=== PATIENT | male | born 1950 | race Caucasian/White ===

== ENCOUNTER 2017-10-07 18:38 | Emergency (ER) | payer OTHER, MEDICARE ==
[~2017-10-07] VITALS: Ht 175.3 cm; Wt 83.9 kg
[~2017-10-07 18:38] MED LIST: ARMOUR THYROID120 MG PO; CYCLOBENZAPRINE10 MG PO; NAPROSYN500 MG PO
== END 2017-10-07 23:37 | disposition home or self-care (01) ==
LOC: ED 18:38
DX: S06.0X9A Concussion with loss of consciousness of unspecified duration, initial encounter (principal); S90.32XA Contusion of left foot, initial encounter; S60.222A Contusion of left hand, initial encounter; S30.0XXA Contusion of lower back and pelvis, initial encounter; E03.9 Hypothyroidism, unspecified; Z88.8 Allergy status to other drugs, medicaments and biological substances; Z79.899 Other long term (current) drug therapy; V49.50XA Passenger injured in collision with unspecified motor vehicles in traffic accident, initial encounter
CPT/HCPCS: 70450; 72125; 73130; 73630; 81001; 99284

== ENCOUNTER 2019-12-20 17:04 | Inpatient (IN) | payer MEDICARE, OTHER ==
[~2019-12-20] VITALS: Ht 175.3 cm; Wt 74.2 kg
[~2019-12-20 17:04] MED LIST changes: -ARMOUR THYROID120 MG PO; +ARMOUR THYROID60 MG PO
--- NOTE | 2019-12-20 21:15 | NUR ---
PT ARRIVES TO ICU ROOM 128 ADMITTED FOR HYPONATREMIA WITH NA 117. HAD GONE TO CLINIC TODAY FOR C/O ABD PAIN AND WAS SENT TO ED FOR EVAL, REPORTED TO BE HAVING PERIODS OF CONFUSION. PT AWAKE AND ANSWERS QUESTIONS APPROPRIATELY AT THIS TIME, SOMEWHAT WEAK AND TIRED. DENIES PAIN. TRANSFERRED TO BED BY DRAW SHEET. PT DID NOT HAVE IV SITE IT HAD JUST INFILTRATED PRIOR TO ED- NS BOLUS ON HOLD UNTIL NEW IV SITE IS ESTABLISHED, WELL MAGNESIUM RIDER. ASSESSMENT DONE, QUESTIONS ANSWERED. HR IS IN 50-60'S OCC UP TO 80'S, 2ND DEGREE BLOCK TYPE 1 NOTED AT THIS TIME.
--- NOTE | 2019-12-20 21:30 | NUR ---
MD CALLED UNIT, GIVEN UPDATE. WILL NOTIFY MD WHEN LABS RESULT.
--- NOTE | 2019-12-20 22:10 | NUR ---
PT C/O NAUSEA AFTER TAKING KCL PILLS. 4MG IV ZOFRAN GIVEN
--- NOTE | 2019-12-20 22:15 | NUR ---
250ML BOLUS COMPLETED, LAB ON THEIR WAY TO DRAW.
--- NOTE | 2019-12-20 23:06 | NUR ---
DR HALLMAN CALLED REGARDING CRITICAL NA VALUE 119, INCREASED FROM PREVIOUS. ORDER GIVEN FOR 50ML/HR NS IVF AND PLAN TO RECHECK LABS IN AM.
--- NOTE | 2019-12-21 00:39 | NUR ---
IN TO CHECK ON PT, DO ASSESSMENT.IVF CONTINUE INFUSING. PT DENIES NEED TO VOID AT THIS TIME. VSS, DENIES PAIN.
--- NOTE | 2019-12-21 02:10 | NUR ---
PT CALLS TO USE URINAL, VOIDED 600ML DARK URINE. STATES HE IS NAUSEATED AGAIN, EXPLAINED TOO EARLY FOR WAQAR AND HE STATES HE IS ABLE TO TRY TO JUST LIE BACK AND TRY TO SLEEP.
--- NOTE | 2019-12-21 02:20 | NUR ---
NS 100ML/HR FOR THREE HOURS HAS COMPLETED. PT NOW SALINE LOCKED.
--- NOTE | 2019-12-21 04:15 | NUR ---
PT HAS BEEN CALLING FREQUENTLY FOR A VARIETY OF THINGS "THE BACK OF MY LEFT LEG FEELS DRY", "MY EYES FEEL PUFFY" AND "IS IT OKAY IF I TAKE A SWALLOW OF WATER?" ASSESSMENT DONE AND PT ENCOURAGED TO TRY TO SLEEP. STATES HE IS "JUST A LITTTLE" NAUSEAUS AND DECLINES MORE ZOFRAN AT THIS TIME.
--- NOTE | 2019-12-21 04:38 | NUR ---
PT CALLS TO STATE "MY NOSE FEELS A LITTLE DRY AND MY EYES FEEL A LITTLE PRESSURE." TYLENOL GIVEN HE THINKS THIS MAY BE THE BEGINNING OF A HEADACHE.
--- NOTE | 2019-12-21 05:02 | NUR ---
LAB IN TO DRAW
--- NOTE | 2019-12-21 06:30 | NUR ---
PT HAS BEEN AWAKE RESTING IN BED AND WATCHING TV THE LAST TWO HOURS.
--- NOTE | 2019-12-21 07:30 | NUR ---
REPORT RECIEVED.PATIENT IS RESTFUL IN BED.TALKED WITH APTIENT ABOUT POC FOR DAY. INDICATES UNDERSTANDING. DENIES ABD PAIN,C/O MILD BACK APIN.IS AWARE OF PERSON, PLACE, TIME.
--- NOTE | 2019-12-21 08:00 | NUR ---
ASSESSMENT DONE. TALKING ABOUT THE AMOUNT OF WATER HE HAS BEEN DRINKING AND OTHER THINGS REGARDING HS HEALTH.HAS DIFFERENT COMMENTS ABOUT HIS HEALTH.
--- NOTE | 2019-12-21 09:20 | NUR ---
OOB TO BR TO VOID 400 ML OF AYDEN URINE. IS STABLE ON FEET. TO CHAIR FOR BREAKFAST.
[2019-12-21] MEDS ORDERED: LISINOPRIL-HCT1 EAC2 PO (09:28)
--- NOTE | 2019-12-21 09:45 | NUR ---
BACK TO BED W/O INCIDENT. HR TO 120'S WITH MOVEMENT. DENEIS FEELING DIZZY. STATES HIS EYES ARE DRY AND SOMETIMES GIVE HIM TROUBLE.
[2019-12-21] MEDS ORDERED: MEN'S 50 PLUS1 EACH PO (09:47)
[2019-12-21] MEDS ORDERED: MEN'S MULTIVIT1 EACH PO (09:48)
[2019-12-21] MEDS ORDERED: SELENIUM50 MCG PO (09:48)
[2019-12-21] MEDS ORDERED: MAGOX 400400 MG PO (09:48)
--- NOTE | 2019-12-21 09:49 | NUR ---
MED REC COMPLETE
--- NOTE | 2019-12-21 10:00 | NUR ---
DR. HALLMAN HERE TO SEE PATIENT. ORDERS RECIEVED.
--- NOTE | 2019-12-21 10:30 | NUR ---
ECHO BEING DONE AT BEDSIDE.
--- NOTE | 2019-12-21 11:50 | NUR ---
SLEEPING, NO DISTESS NOTED.
--- NOTE | 2019-12-21 12:10 | NUR ---
SLEEPING, NOT AWAKENED FOR ASSESSMENT AT THIS TIME. IVF INFUSING AT 100 ML/HR.
--- NOTE | 2019-12-21 13:00 | NUR ---
AWAKE, ASSESSMENT DONE. LUNCH ORDERED. FELICE CAPUTO.
--- NOTE | 2019-12-21 13:15 | NUR ---
SPONGE BATH GIVEN, TOLERATED WELL. TO CHAIR FOR LUNCH. VERY TALKATIVE.
--- NOTE | 2019-12-21 13:32 | NUR ---
PT ASLEEP, RN ROMEL REQUESTED I COME AGAIN WHEN PT IS AWAKE.
--- NOTE | 2019-12-21 14:20 | NUR ---
TOOK LUNCH WELL. DENIES NAUSEA.
--- NOTE | 2019-12-21 14:40 | NUR ---
LAB HERE TO DRAW NA.
--- NOTE | 2019-12-21 14:56 | NUR ---
Spoke with Jose in [facility]. He is very high energy. States he is x 1 year and lives alone in [place]. States he is very active and [place]. Does not use any DME. Sister, Tonia, arrives. We are discussing if pt will be able to care for self on discharge and he jumps up rapidly and stand by the bed. Pt becomes dizzy and returns to bed. Pt and sister discuss and he decided on discharge he will go to her home for a few days. Pt also states he has a ramp into his home. Will fu with pt tomorrow.
--- NOTE | 2019-12-21 15:00 | NUR ---
STANDING UP IN ROOM. VISITING WITH SISTER. MONITOR CONTINUE TO SHOW, MAT,SR W/ FIRST DEGREE BLOCK, RARE 2 DEGREE TYPE 1, OCC PVC, PJC. DENEIS FEELING DIZZY.
--- NOTE | 2019-12-21 17:23 | NUR ---
PT ARRIVED TO FLOOR VIA BED. ASSESSMENT COMPLETED. LUNGS CLEAR. HEART IRREGULAR. TELE 4 PLACED. ORIETNED TO ROOM. CALL LIGHT IN REACH.
--- NOTE | 2019-12-21 18:35 | EKG ---
[facility] [address] [place] [address] Signed Sinus rhythm with 2nd degree AV block (Mobitz II) with occasional premature ventricular complexes Possible Left atrial enlargement Left ventricular hypertrophy with QRS widening Abnormal ECG When compared with ECG of 20-DEC-2019 18:11, (Unconfirmed) premature ventricular complexes are now present Confirmed by MENDEL HALLMAN DO ([id number]) on 12/21/2019 6:35:32 PM Electronically Signed By: MENDEL HALLMAN DO 12/21/19 1835 PATIENT NAME: CIARA SANTO Electrocardiogram DATE OF : 52 PHYSICIAN: MENDEL HALLMAN DO REPORT #: [id number] REPORT IS CONFIDENTIAL AND NOT TO BE RELEASED WITHOUT AUTHORIZATION
--- NOTE | 2019-12-21 19:12 | NUR ---
RECEIVED REPORT FROM KENDAL WALLER. pt SITTING IN CHAIR EATING A LARGE DINNER. REQUESTED SALSA, KITCHEN STAFF INFORMED, ITEM PROCURED. CALL LIGHT WITHIN REACH. WHITEBOARD UPDATED.
--- NOTE | 2019-12-21 20:05 | NUR ---
CALL LIGHT ON. pt REPORTED BM, BROWN AND LOOSE, MEDIUM SIZE. ASSESSMENT DONE. HEART RATE IRREGULAR AT TIMES, RATE VARIES. pt REPORTS "I'M FEELING A LOT BETTER" PROVIDED JUICE AND EDUCATED ON FLUID RESTRICTION. PROVIDED A ROBE. pt SITTING IN THE CHAIR WATCHING TV. CALL LIGHT WITHIN REACH. NO REQUESTS AT THIS TIME.
--- NOTE | 2019-12-21 21:10 | NUR ---
PT IS WALKING IN [place] AT THIS TIME. HE DENIES NEEDS.
--- NOTE | 2019-12-21 21:30 | NUR ---
PT CALLED TO SAY HE HAD A BM AND USED URINAL. HE DENIES FURTHER NEEDS AT THIS TIME. CALL LIGHT IS CLOSE.
--- NOTE | 2019-12-21 21:48 | NUR ---
PER KENDAL SERNA. pt REQUESTING SOMETHING TO DRINK. EXPLAINED FLUID RESTRICTION TO pt. AGREED ON PLAN FOR THE NIGHT. WATER PROVIDED. VITALS AND I&O RECORDED. NO FURTHER REQUESTS AT THIS TIME. CALL LIGHT WITHIN REACH.
--- NOTE | 2019-12-21 23:17 | NUR ---
pt AMBULATED TO NURSES STATION. STATED "I'M NOT GOING TO GET WELL ON SO LITTLE FLUID, I KNOW MY BODY ISN'T GOING TO START WORKING WITHOUT MORE FLUID." pt AGREEABLE TO SPEAK WITH THE DOCTOR ABOUT IT IN THE MORNING "THAT'S A GOOD IDEA, I JUST WOKE UP AND I HAD TO LET YOU KNOW WHAT I WAS THINKING." pt REQUESTED TYLENOL FOR 3/10 PAIN IN LOWER ABD, "I THINK IT WILL HELP ME SLEEP, OTHERWISE THIS PAIN IS GOING TO KEEP ME AWAKE." pt RESTING IN BED. NO FURTHER REQUESTS AT THIS TIME. CALL LIGHT WITHIN REACH. EDUCATION DONE ON CURRENT ILLNESS AND TREATMENT.
--- NOTE | 2019-12-21 23:30 | NUR ---
CALL LIGHT ANSWERED. pt C/O LIGHT ON VS MACHINE. MACHINE OFF AND TURNED AWAY FROM pt. SLEEP MASK PROVIDED TO pt. NO ADDITIONAL REQUESTS. BED IN LOW POSITION, CALL LIGHT IN REACH.
--- NOTE | 2019-12-21 23:43 | NUR ---
pt AMBULATING IN ERWIN. STEADY ON FEET. "I ALMOST WENT TO SLEEP BUT THE PAIN WOKE ME BACK UP AGAIN."
--- NOTE | 2019-12-22 01:11 | NUR ---
pt UP WALKING IN ERWIN, SBA.
--- NOTE | 2019-12-22 01:15 | NUR ---
pt REPORTED THAT PAIN IS "PRETTY MUCH GONE" NO OTHER REQUESTS AT THIS TIME. CALL LIGHT WITHIN REACH. pt IN ROOM RESTING.
--- NOTE | 2019-12-22 03:02 | NUR ---
ROUNDED ON pt. RESTING WITH EYES CLOSED, RESPIRATIONS REGULAR AND UNLABORED. CALL LIGHT WITHIN REACH.
--- NOTE | 2019-12-22 05:42 | NUR ---
CALL LIGHT ON. pt UP TO VOID. WEIGHT TAKEN, VITALS AND I&O RECORDED. MORNING MEDICATION GIVEN (SEE MAR). ASSESSMENT DONE. NO FURTHER REQUESTS AT THIS TIME. CALL LIGHT WITHIN REACH.
--- NOTE | 2019-12-22 06:10 | NUR ---
HEARD pt FROM [place]. IN TO ASSESS. pt CRYING. STATED "I'VE NEVER HAD THIS KIND OF PAIN BEFORE. IT'S JUST LIKE ON FRIDAY." pt ORIENTED. RE-ASSESSED. INDICATED PAIN IS LOCATED IN LOWER ABD. "IT JUST MOVES, IT'S NOT GAS PAIN BUT IT FEELS LIKE GAS PAIN. I'VE NEVER HAD PAIN THIS BAD." RATED PAIN 8/10. ABD SOFT, NOT TENDER. UNABLE TO DESCRIBE PAIN OR PINPOINT LOCATION. LAB INTO DRAW. pt CALM AT TIMES AND VERY EMOTIONAL AT TIMES. PROVIDED A WARM BLANKET. pt HUMMING WITH EYES CLOSED, STATED IT WAS OKAY FOR THIS RN TO LEAVE. CALL LIGHT WITHIN REACH.
--- NOTE | 2019-12-22 06:21 | NUR ---
pt WALKING IN THE ERWIN WITH VICKY BOLDEN. CALM AT TIMES, EMOTIONAL AT TIMES. THE pt REPORTED HIS ABD PAIN "IT'S BETTER"
--- NOTE | 2019-12-22 06:36 | NUR ---
IN TO REASSESS. pt LAYING IN BED EYES CLOSED, CHANTING. "I'M FEELING A LITTLE BETTER, I FOUND THAT IF I CHANT I CAN RELAX A LITTLE. GOD HAS BEEN SPEAKING TO ME. YOU KNOW ON FRIDAY I WAS OUT IN THE [place]ARDEN TRYING TO GET MY MIND OFF THE PAIN AND WHEN I WAS HERE I FELT SOMETHING ON MY NECK AND IT WAS A TICK. I WAS ABLE TO KILL IT. I REALIZED THAT GOD WAS GIVING ME A SIGN HOW ELSE WOULD I HAVE BEEN ABLE TO FOCUS ON THAT WITH EVERYTHING ELSE. I HEARD FROM GOD THAT IT'S GOING TO BE OKAY AND THAT'S ALL THAT MATTERS." pt DENIED HEADACHE AT THIS TIME. REPORTED THAT ABD PAIN IS BETTER THAN BEFORE. pt LAYING IN BED WITH EYES CLOSED, CHANTING. CALL LIGHT WITHIN REACH. pt VERBALIZED UNDERSTANDING THAT HE NEEDS TO CALL IMMEDIATELY IF ANYTHING CHANGES.
--- NOTE | 2019-12-22 07:34 | NUR ---
pt HAD A FEW HOURS OF REST THIS SHIFT. UP MULTIPLE TIMES TO THE NURSES STATION TO PROVIDE THOUGHTS. SBA. ORIENTED, THOUGHT PATTERN DIFFICULT TO FOLLOW AT TIMES. TELE 4. DAILY WT. IV SL. TOLERATING REGULAR DIET, 1800 FLUID RESTRICTION. STATED "IF YOU AREN'T PUTTING ANYTHING IN MY VEIN THEN I DON'T KNOW THAT THIS IS ENOUGH FLUID TO MAKE ME WELL" BM THIS SHIFT. PRN PAIN MED X1.
--- NOTE | 2019-12-22 07:38 | NUR ---
RECEIVED REPORT FROM ALIDA EDMONDS. PT CAME OUT TO NURSES STATION. BOTH RNS WALKED PT BACK TO ROOM AT THIS TIME. DISCUSSED WITH PT THAT HE NEEDS TO USE CALL LIGHT TODAY INSTEAD OF COMING OUT TO NURSES STATION IF HE NEEDS SOMETHING. PT REQUESTED THAT THIS RN DO HIS BP. BP 141/81 (93)
--- NOTE | 2019-12-22 07:51 | NUR ---
PATIENT IN SHOWER, IV'S WRAPPED. PATIENT WILL CLL WHEN DONE
--- NOTE | 2019-12-22 09:00 | NUR ---
IN PTS ROOM TO GIVE MEDS AND DO ASSESSMENT
--- NOTE | 2019-12-22 09:00 | NUR ---
Spoke with Jose. States he had a rough night. Woke with a panic attack. States he had abdominal pain which is chronic. States he was not happy with his breakfast as butter was placed on his tray, he is vegan. Reminded he nees to notify when ordering his wishes. He states understanding. States he cont. to plan on going home to his sisters on [place] for a few days. 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
--- NOTE | 2019-12-22 10:00 | NUR ---
IN PTS ROOM TO HANG FLUIDS
--- NOTE | 2019-12-22 12:15 | NUR ---
pt put talent development consultant light for assistance to citrus picker his full urinal
--- NOTE | 2019-12-22 12:36 | NUR ---
PT ALERT, LAYING IN BED. PT APPEARS TO ENJOY ENGAGING IN CONVERSATION. PT SAID HE SLEPT ABOUT 4 HRS AND THEN UNPROMPTED BEGAN TO TALK ABOUT HIS SODIUM LEVELS LEVELS.PT STATED HE HAD SEEN A SPECIALIST PREVIOUS AND PLACED HIM ON A SPECIAL 2000 MG SODIUM DIET. CHANGED THOUGHT PROCESS NUMEROUS TIMES. TERRITORY BUSINESS MANAGER IN TO TAKE VS AND WAS CONCERNED ABOUT HIS BP. PT REQUESTED PRAYER, LEFT A G.POST AND LET HIM KNOW I WILL RETURN.
--- NOTE | 2019-12-22 12:45 | NUR ---
in pts room to give meds. pt also requesting alen for his sandwich
--- NOTE | 2019-12-22 14:00 | NUR ---
Notified by liquid compounder, pt will be dcd today and will need a follow up appt with cardiology in [place], on my way to [facility] to speak with Meera Poon let me know she has already spoken with . Pt will need to follow up with Dr. Mancilla from Cardiology in [place]. In and spoke with Jose, he is wanting to go home. Sister Tonia will pick him up and take him home with her for a few days. He will follow up with automotive center manager in the next few day.
--- NOTE | 2019-12-22 14:37 | NUR ---
CALLED PT'S SISTER TO NOTIFY THAT WILL BE DISCHARGING PT HOME TODAY THEN WILL NEED TO FOLLOW UP URGENTLY WITH CARDIOLOGY.
[2019-12-22] MEDS ORDERED: LISINOPRIL10 MG PO (14:42)
--- NOTE | 2019-12-23 17:47 | EKG ---
[facility] [address] [place], [place] [address] Signed Sinus rhythm with 2nd degree AV block (Mobitz I) Possible Left atrial enlargement Left ventricular hypertrophy Abnormal ECG No previous ECGs available Confirmed by MENDEL HALLMAN DO ([id number]) on 12/23/2019 5:47:18 PM Electronically Signed By: MENDEL HALLMAN DO 12/23/19 1747 PATIENT NAME: CIARA SANTO Electrocardiogram DATE OF : 52 PHYSICIAN: MENDEL HALLMAN DO REPORT #: [id number] REPORT IS CONFIDENTIAL AND NOT TO BE RELEASED WITHOUT AUTHORIZATION
== END 2019-12-22 16:35 | disposition home or self-care (01) | DRG 640 ==
LOC: ED 17:04 → CCU 20:44 → MS 12-21 17:15
PROVIDERS: ADMIT Student in an Organized Health Care Education/Training Program
DX: E87.1 Hypo-osmolality and hyponatremia (principal); G93.41 Metabolic encephalopathy; I44.1 Atrioventricular block, second degree; E03.9 Hypothyroidism, unspecified; I10 Essential (primary) hypertension; T50.2X5A Adverse effect of carbonic-anhydrase inhibitors, benzothiadiazides and other diuretics, initial encounter; Z20.828 Contact with and (suspected) exposure to other viral communicable diseases; Z88.8 Allergy status to other drugs, medicaments and biological substances; Z79.899 Other long term (current) drug therapy
CPT/HCPCS: 36415; 80048; 80053; 81001; 82533; 82550; 83690; 83735; 83935; 84100; 84295; 84300; 84443; 84484; 85025; 93005; 93010; 93306; 97161; 97165; 99285-25; C9803; J1650; J2405; J3475; J7030; J7040; U0002

== ENCOUNTER 2020-01-04 11:59 | Emergency (ER) | payer MEDICARE ==
[~2020-01-04] VITALS: Ht 175.3 cm; Wt 74.2 kg
--- OUTSIDE RECORDS SUMMARY | ~2020-01-04 | XMS | Encounter Summary ---
Demographics + + + | Address | [address] | | | [place] [address] | + + + | Home Phone | | + + + | Preferred Language | Unknown | + + + | Marital Status | | + + + | Amish Affiliation | Unknown | + + + | Race | Unknown | + + + | Ethnic Group | Unknown | + + + Author + + + | Author | [facility] | | | and [place] | + + + | Organization | [facility] | | | and [place] | + + + | Address | Unknown | + + + | Phone | Unavailable | + + + Support + + +---------+ + | Name | Relationship | Address | Phone | + + +---------+ + | Tonia Donato | ECON | Unknown | | + + +---------+ + Care Team Providers + +------+ + | Care Track Car Operator Name | Role | Phone | + +------+ + | Neida Noyola | PCP | | + +------+ + Reason for Referral Diagnostic/Screening (Routine) +--------+--------+ + + + + | Status | Reason | Specialty | Diagnoses / | Referred By | Referred To | | | | | Procedures | Contact | Contact | +--------+--------+ + + + + | Closed | | Radiology | Diagnoses | Maldonado Brantley | | | | | Second | MD Bryan | Electrodiagno | | | | | degree AV | [address] | [address] | | | | | block | [address] | [place] | | | | | Procedures | [place], | [place], [place] | | | | | Holter | [place] [address] | [address] | | | | | monitor - 48 | Phone: | Phone: | | | | | hour | [phone] | [phone] | | | | | | Fax: | Fax: | | | | | | [phone] | [phone] | +--------+--------+ + + + + Reason for Visit + + + | Reason | Comments | + + + | New Patient | 2nd degree AV block | + + + Evaluate & Treat (Urgent) + +--------+ + + + + | Status | Reason | Specialty | Diagnoses / | Referred By | Referred To | | | | | Procedures | Contact | Contact | + +--------+ + + + + | Authorized | | Cardiology | Diagnoses | Monica, | [facility] | | | | | Second | [address] | Cardiology | | | | | degree AV | [address] | [address] | | | | | block | [place], | [place], | | | | | Procedures | [place] [address] | [place] | | | | | [facility] | Phone: | [address] | | | | | | [phone] | Phone: | | | | | | Fax: | [phone] | | | | | | [phone] | Fax: | | | | | | | [phone] | + +--------+ + + + + Encounter Details +--------+---------+ + + + | Date | Type | Department | Care Team | Description | +--------+---------+ + + + | 12/26/ | Office | [facility] | Bryan Brantley, | Second degree AV | | 2020 | Visit | CARDIOLOGY [address] | MD [address] | block (Primary Dx) | | | | [place], | [place], | | | | | [place] [address] | [place] [address] | | | | | [phone] | [phone] | | | | | | | | +--------+---------+ + + + Social History + +-------+ +--------+------+ | Tobacco Use | Types | Packs/Day | Years | Date | | | | | Used | | + +-------+ +--------+------+ | Never Smoker | | | | | + +-------+ +--------+------+ + +---+---+---+ | Smokeless Tobacco: | | | | | Never Used | | | | + +---+---+---+ + + +---------+ + | Alcohol Use | Drinks/Week | oz/Week | Comments | + + +---------+ + | No | | | | + + +---------+ + + + + | Sex Assigned at | Date Recorded | | | | + + + | Not on file | | + + + documented as of this encounter Last Filed Vital Signs + + + + + | Vital Sign | Reading | Time Taken | Comments | + + + + + | Blood Pressure | 130/90 | 12/27/2019 8:08 AM | | | | | PDT | | + + + + + | Pulse | 90 | 12/27/2019 8:08 AM | | | | | PDT | | + + + + + | Temperature | - | - | | + + + + + | Respiratory Rate | 20 | 12/27/2019 8:08 AM | | | | | PDT | | + + + + + | Oxygen Saturation | - | - | | + + + + + | Inhaled Oxygen | - | - | | | Concentration | | | | + + + + + | Weight | 74.3 kg (163 lb 12.8 | 12/27/2019 8:08 AM | | | | oz) | PDT | | + + + + + | Height | 176.5 cm (5' 9.5") | 12/27/2019 8:08 AM | | | | | PDT | | + + + + + | Body Mass Index | 23.84 | 12/27/2019 8:08 AM | | | | | PDT | | + + + + + documented in this encounter Patient Instructions Patient Instructions Dejon Vaughan RN - 12/27/2019 8:00 AM PDT Holter Monitor : 48 hour Date: Check-In Time: Where to Check in: Follow up appointment: 2-3 months virtual? Provider: Bryan Brantley MD Date: Check-In Time: documented in this encounter Progress Notes Bryan Brantley MD - 12/27/2019 8:00 AM PDTFormatting of this note might be different f rom the original. PATIENT NAME: Isidro Viera : 1950: AGE: 69 y.o. REFERRED BY: Don Anderson PRIMARY CARE: MICHELLE Neri NEW PATIENT OFFICE VISIT Date of Service: 12/27/19 HISTORY OF PRESENT ILLNESS: Isidro Viera is a 69 y.o. male with a history of essential hypertension and hypothyroi dism. He is being seen today for 2nd degree AV block. Patient was in his usual state of health until he was admitted to [facility] fo r headache and confusion. He was found to have a sodium of 117 with a high specific gravity UA suggesting tea and toast diet use of hydrochlorothiazide as the likely culprit. Hydrochlo rothiazide was discontinued. EKG demonstrated second degree AV block Mobitz type II pattern. Dr. Mancilla was consulted over the phone. Dr. Mancilla recommended correcting the patient's so dium and check if he is symptomatic, if patient was not. Patient would have need urgent card iac follow up for consideration of pacemaker. Today, patient complains of chest pain at rest. Patient is physically active by walking, r iding his e-bicycle and working on his garden. Patient denies breathlessness. There is no palpitation dizziness or lightheadedness. There is no ankle or leg swelling. Patient can s leep on one pillow at night without difficulty breathing. CURRENT PROBLEMS Patient Active Problem List Diagnosis CHANGE IN BOWELS Hypothyroidism Hyponatremia Second degree AV block Essential hypertension MEDICAL, SURGICAL, AND PERSONAL HISTORY Past Surgical History: Procedure Laterality Date COLONOSCOPY EYE SURGERY At 4 years old THUMB AMPUTATION Family History Problem Relation Age of Onset Congenital heart disease Mother Cancer Father testicular Family Status Relation Name Status Mother Father Sister at age 20 years Social History Socioeconomic History Marital status: Spouse name: Not on file Number of children: Not on file Years of education: Not on file Highest education level: Not on file Tobacco Use Smoking status: Never Smoker Smokeless tobacco: Never Used Substance and Sexual Activity Alcohol use: No Drug use: No CURRENT MEDICATIONS Current Outpatient Medications Medication Sig Dispense Refill ascorbic acid (VITAMIN C) 500 mg tablet Take 500 mg by mouth Daily. lisinopril (PRINIVIL, ZESTRIL) 10 mg tablet Take 10 mg by mouth Daily magnesium oxide (MAG-OX) 400 mg tablet Take 400 mg by mouth Daily Multiple Vitamins-Minerals (MENS 50+ MULTI VITAMIN/MIN) TABS Take 1 tablet by mouth Michaela ly. selenium 50 MCG TABS Take 50 mcg by mouth Daily thyroid (NATURE-THROID, WESTHROID) 65 MG tablet Take 65 mg by mouth 2 times daily No current facility-administered medications for this visit. ALLERGIES Allergies Allergen Reactions Iodine Rash ROS Review of Systems Constitutional: Positive for diaphoresis. Negative for chills, fever, malaise/fatigue and w eight loss. HENT: Negative for congestion, hearing loss, nosebleeds and tinnitus. Dental Problems = No Eyes: Negative for blurred vision and double vision. Respiratory: Negative for shortness of breath. Cardiovascular: Positive for chest pain. Negative for palpitations and leg swelling. Gastrointestinal: Negative for blood in stool, constipation, diarrhea, nausea and vomiting. Genitourinary: Negative for dysuria, frequency, hematuria and urgency. Musculoskeletal: Negative for back pain, falls, joint pain, myalgias and neck pain. Gait Problems = No Skin: Negative for itching and rash. Neurological: Positive for dizziness. Negative for tingling, tremors, speech change, seizur es, loss of consciousness and weakness. Lightheaded = No Endo/Heme/Allergies: Does not bruise/bleed easily. Psychiatric/Behavioral: Negative for memory loss. The patient is not nervous/anxious and do es not have insomnia. OBJECTIVE: PHYSICAL EXAM BP 130/90 | Pulse 90 | Resp 20 | Ht 1.765 m (5' 9.5") | Wt 74.3 kg (163 lb 12.8 oz) | BMI 23.84 kg/m Physical Exam Constitutional: He appears well-developed and well-nourished. No distress. Male individual accompanied by sister, with no acute distress. Neck: Normal carotid pulses, no hepatojugular reflux and no JVD present. Carotid bruit is n ot present. Cardiovascular: Normal rate, regular rhythm, S1 normal, S2 normal, normal heart sounds, int act distal pulses and normal pulses. PMI is not displaced. Exam reveals no gallop, no S3, no S4 and no friction rub. No murmur heard. Pulses: Carotid pulses are 2+ on the right side and 2+ on the left side. Dorsalis pedis pulses are 2+ on the right side and 2+ on the left side. Pulmonary/Chest: Effort normal and breath sounds normal. No accessory muscle usage. No resp iratory distress. He has no wheezes. He has no rhonchi. He has no rales. Abdominal: Normal appearance, normal aorta and bowel sounds are normal. He exhibits no abdo lori bruit. There is no hepatosplenomegaly. There is no abdominal tenderness. Musculoskeletal: General: No edema. Neurological: He is alert. Gait normal. Skin: Skin is warm and dry. Psychiatric: He has a normal mood and affect. His mood appears not anxious. He does not exh ibit a depressed mood. ECG: Sinus rhythm, frequent PACs, atrial tachycardia. LAB RESULTS: LIPID No results found for: CHOL, TRIG, HDL, LDL, CHOLHDL, LDLEX, HDLEX, TRIGEX, CHOLEX CHEMISTRY Lab Results Component Value Date GLUEX 106 (A) 12/20/2019 NAEX 117 (A) 12/20/2019 KEX 3.6 12/20/2019 CLEX 83 (A) 12/20/2019 CO2EX 25 12/20/2019 ASTEX 24 12/20/2019 ALTEX 13 12/20/2019 EGFREX 98 12/20/2019 CREEX 0.79 12/20/2019 HEMATOLOGY Lab Results Component Value Date WBCEX 7.4 12/20/2019 HGBEX 12.1 (A) 12/20/2019 HCTEX 34.4 (A) 12/20/2019 PLTEX 230 12/20/2019 I reviewed records from [facility] for hospitalization,including H&P, Discharge Summary and lab reports on 12/20/19. Refer to automotive parts counter assistant. ASSESSMENT: 1. 2nd degree AV block A. Echocardiogram 12/21/2019 shows normal left ventricular cavity size, left ventricular wa ll thickness at the upper limites of normal, ejection fraction is visually estimated at 65%, no regional wall motion abnormalities, doppler flow profile suggests an abnormal grade I di astolic filling patter. Allie Knight MD. B. Patient was in his usual state of health until 12/20/19, when patient was admitted to [facility] for headache and confusion. He was found to have a sodium of 117 with a high specific gravity UA suggesting tea and toast diet use of hydrochlorothiazide as the li ann culprit. Hydrochlorothiazide was discontinued. EKG demonstrated second degree AV block Mobitz type II pattern. Dr. Mancilla was consulted over the phone. Dr. Mancilla recommended jess ecting the patient's sodium and check if he is symptomatic, if patient was not. Patient woul d have need urgent cardiac follow up for consideration of pacemaker. Today, patient complains of chest pain at rest. Patient is physically active by walking, riding his e-bicycle and working on his garde. There is no signs and symptoms of overt carmina estive heart failure. He is in a class I of [employer] functional class. T here is no fluid retention on physical examination. 2. Essential hypertension A. Patient is taking lisinopril 10 mg daily. B. Today 12/27/19, blood pressure in office is within target. 3. Hypothyroidism A. He is on nature thyroid 65 mg daily. PLAN: 1. I spend time at length talking about natural course, treatment and prognosis of 2nd deg ree AV block. Permanent pacemaker implantation is not indicated at this time. 2. 48 holter monitor for arrhythmia/heart block. 3. I will continue with current medical regimen. 4. I recommend a therapeutic lifestyle change including walking 30 minutes a day, choosing healthy choices of diet , including DASH diet, weight reduction and 7 hours of high quality sleep a night. 5. Follow up in 3 months. IPoornima, am acting as a scribe on behalf of, and in the presence of Bryan thomas MD. I have reviewed and edited this note. Feliciano Ch Asst 12/27/2019 Bryan Costello MD, personally performed the services described in this documentation, as scribed in my presence and it is both accurate and complete. Feliciano Ch Asst 8:20 AM PDT Electronically signed by: Bryan Brantley MD [facility] 12/27/2019 Portions of this chart may have been created with [employer] voice recognition software. Occasi onal wrong-word or sound-alike substitutions may have occurred due to the inherent fernandez itations of voice recognition software. Please read the chart carefully and recognize, using context, where these substitutions have occurred. documented in this encounter Plan of Treatment +--------+---------+ + + + | Date | Type | Specialty | Care Team | Description | +--------+---------+ + + + | 04/14/ Office | Cardiology | Bryan Brantley, | | | 2019 | Visit | | MD [facility] | | | | | | [place], | | | | | | [place] [address] | | | | | | [phone] | | | | | | | | +--------+---------+ + + + + +------+--------+ + + | Name | Type | Priori | Associated Diagnoses | Order Schedule | | | | ty | | | + +------+--------+ + + | Holter monitor - 48 | ECG | Routin | Second degree AV | Expected: 12/27/2019 | | hour | | e | block | (Approximate), | | | | | | Expires: 12/26/2020 | + +------+--------+ + + documented as of this encounter Procedures + +--------+ + + + | Procedure Name | Priori | Date/Time | Associated Diagnosis | Comments | | | ty | | | | + +--------+ + + + | ECG 12 LEAD | Routin | 12/27/2019 | Second degree AV | Results for this | | | e | 7:57 AM | block | procedure are in the | | | | PDT | | results section. | + +--------+ + + + | ECG 12 LEAD | Routin | 12/27/2019 | Second degree AV | Results for this | | | e | 7:55 AM | block | procedure are in the | | | | PDT | | results section. | + +--------+ + + + documented in this encounter Results ECG 12 lead (12/27/2019 7:57 AM PDT) + + + + + + | Component | Value | Ref Range | Performed | Pathologist | | | | | At | Signature | + + + + + + | VENTRICULAR | 71 | BPM | [facility] | | | RATE EKG | | | | | + + + + + + | ATRIAL RATE | 78 | BPM | [facility] | | + + + + + + | P-R | 218 | ms | [facility] | | | INTERVAL | | | | | + + + + + + | QRS | 98 | ms | [facility] | | | DURATION | | | | | + + + + + + | Q-T | 356 | ms | [facility] | | | INTERVAL | | | | | + + + + + + | Q-T | 386 | ms | [facility] | | | INTERVAL | | | | | | (CORRECTED) | | | | | + + + + + + | P WAVE AXIS | 69 | degrees | [facility] | | + + + + + + | QRS AXIS | -3 | degrees | [facility] | | + + + + + + | T AXIS | 51 | degrees | [facility] | | + + + + + + | INTERPRETAT | Sinus rhythm one non | | [facility] | | | ION TEXT | conducted p-waveAbnormal | | | | | | ECGWhen compared with | | | | | | ECG of 27-DEC-2019 | | | | | | 07:55, | | | | | | (Unconfirmed)premature | | | | | | ventricular complexes | | | | | | are no longer | | | | | | presentSinus rhythm is | | | | | | now with 2nd degree AV | | | | | | block (Mobitz II)Vent. | | | | | | rate has decreased BY | | | | | | 46 BPMReconfirmed by | | | | | | BRYAN BRANTLEY MD | | | | | | ([id number]) on 12/31/2019 | | | | | | 6:25:22 AM | | | | + + + + + + + + | Specimen | + + | | + + + + + | Narrative | Performed At | + + + | | | + + + + +---------+ + + | Performing | Address | City/State/Zipcode | Phone Number | | Organization | | | | + +---------+ + + | [facility] | | | | + +---------+ + + ECG 12 lead (12/27/2019 7:55 AM PDT) + + + + + + | Component | Value | Ref Range | Performed | Pathologist | | | | | At | Signature | + + + + + + | VENTRICULAR | 117 | BPM | [facility] | | | RATE EKG | | | | | + + + + + + | ATRIAL RATE | 88 | BPM | [facility] | | + + + + + + | P-R | 192 | ms | [facility] | | | INTERVAL | | | | | + + + + + + | QRS | 102 | ms | [facility] | | | DURATION | | | | | + + + + + + | Q-T | 332 | ms | [facility] | | | INTERVAL | | | | | + + + + + + | Q-T | 463 | ms | [facility] | | | INTERVAL | | | | | | (CORRECTED) | | | | | + + + + + + | P WAVE AXIS | 64 | degrees | [facility] | | + + + + + + | QRS AXIS | -2 | degrees | [facility] | | + + + + + + | T AXIS | 66 | degrees | [facility] | | + + + + + + | INTERPRETAT | Sinus rhythm with | | [facility] | | | ION TEXT | frequent and consecutive | | | | | | premature ventricular | | | | | | complexesPossible Left | | | | | | atrial | | | | | | enlargementAbnormal | | | | | | ECGNo previous ECGs | | | | | | availableConfirmed by | | | | | | BRYAN BRANTLEY MD | | | | | | ([id number]) on 12/27/2019 | | | | | | 3:27:52 PM | | | | + + + + + + + + | Specimen | + + | | + + + + + | Narrative | Performed At | + + + | | | + + + + +---------+ + + | Performing | Address | City/State/Zipcode | Phone Number | | Organization | | | | + +---------+ + + | [facility] | | | | + +---------+ + + documented in this encounter Visit Diagnoses + + | Diagnosis | + + | Second degree AV block - Primary Other second degree atrioventricular block | + + documented in this encounter
--- OUTSIDE RECORDS SUMMARY | ~2020-01-04 | XMS | Encounter Summary ---
Demographics + + + | Address | [address] | | | [place] [address] | + + + | Home Phone | | + + + | Preferred Language | Unknown | + + + | Marital Status | | + + + | Roman Catholic Affiliation | Unknown | + + + | Race | Unknown | + + + | Ethnic Group | Unknown | + + + Author + + + | Author | [facility] | | | and [place] | + + + | Organization | [facility] | | | [...] Team Providers + +------+ + | Care Log Sorting Supervisor Name | Role | Phone | + +------+ + PCP | Unavailable | + +------+ + Encounter Details +--------+ + + + + | Date | Type | Department | Care Team | Description | +--------+ + + + + | 10/17/ | Hospital | [facility] | | | | 2008 | Encounter | [facility] | [facility] [address] | | | | | | [place] | | | | | | [address] | | | | | | [phone] | | | +--------+ + + + + Social History + +-------+ +--------+------+ | Tobacco Use | Types | Packs/Day | Years | Date | | | | | Used | | + +-------+ +--------+------+ | Never Assessed | | | | | + +-------+ +--------+------+ + + + | Sex Assigned at | Date Recorded | | | | + + + | Not on file | | + + + documented as of this encounter Plan of Treatment +--------+---------+ + + + | Date | Type | Specialty | Care Team | Description | +--------+---------+ + + + | 04/14/ | Office | Cardiology | Spencer Brantley, | | | 2020 | Visit | | MD [facility] | | | | | | [place], | | | | | | [place] [address] | | | | | | [phone] | | | | | | | | +--------+---------+ + + + documented as of this encounter Visit Diagnoses Not on filedocumented in this encounter"
--- OUTSIDE RECORDS SUMMARY | ~2020-01-04 | XMS | Encounter Summary ---
Demographics + + + | Address | [address] | | | [place] [address] | + + + | Home Phone | | + + + | Preferred Language | Unknown | + + + | Marital Status | | + + + | Alevism Affiliation | Unknown | + + + | Race | Unknown | + + + | Ethnic Group | Unknown | + + + Author + + + | Author | [facility] | | | and [place] | + + + | Organization | [facility] | | [...] Team Providers + +------+ + | Care Bonded Structures Repairer Name | Role | Phone | + +------+ + | No, Physician | PCP | Unavailable | + +------+ + Reason for Visit +--------+ + | Reason | Comments | +--------+ + | URI | x 2 wk; assoc. with cough, sore throat, pnd, chills | +--------+ + Encounter Details +--------+---------+ + + + | Date | Type | Department | Care Team | Description | +--------+---------+ + + + | 03/12/ | Office | [facility] | Saira Paige | Acute otitis externa | | 2018 | Visit | [address] | [address] | of both ears, | | | | [address] | VINNIE MENDOZA | unspecified type | | | | [address] [facility] | [place] [address] | (Primary Dx); Viral | | | | [place] [address] | [phone] | illness; Sore throat | | | | [phone] | | | +--------+---------+ + + + [...] | | | + +---+---+---+ + + | Tobacco Cessation: Counseling Given: No | + + + + +---------+ + | Alcohol Use [...] + + + | Blood Pressure | 140/80 | 03/12/2018 11:38 AM | | | | | PDT | | + + + + + | Pulse | 76 | 03/12/2018 11:38 AM | | | | | PDT | | + + + + + | Temperature | 36.9 C (98.5 F) | 03/12/2018 11:38 AM | | | | | PDT | | + + + + + | Respiratory Rate | 20 | 03/12/2018 11:38 AM | | | | | PDT | | + + + + + | Oxygen Saturation | 97% | 03/12/2018 11:38 AM | | | | | PDT | | + + + + + | Inhaled Oxygen | - | - | | | Concentration | | | | + + + + + | Weight | 90.7 kg (200 lb) | 03/12/2018 11:38 AM | | | | | PDT | | + + + + + | Height | 176.5 cm (5' 9.5") | 03/12/2018 11:38 AM | | | | | PDT | | + + + + + | Body Mass Index | 29.11 | 03/12/2018 11:38 AM | | | | | PDT | | + + + + + documented in this encounter Patient Instructions Patient Instructions Saira Paige ARNP - 03/12/2018 12:06 PM PDTFormatting of this n ote might be different from the original. When You Have a Sore Throat A sore throat can be painful. There are many reasons why you may have a sore throat. Your [facility] provider will work with you to find the cause of your sore throat. He or she will also find the best treatment for you. What causes a sore throat? Sore throats can be caused or worsened by: Cold or flu viruses Bacteria Irritants such as tobacco smoke or air pollution Acid reflux A healthy throat The tonsils are on the sides of the throat near the base of the tongue. They collect viruse s and bacteria and help fight infection. The throat (pharynx) is the passage for air. Mucus from the nasal cavity also moves down the passage. An inflamed throat The tonsils and pharynx can become inflamed due to a cold or flu virus. Postnasal drip (exc ess mucus draining from the nasal cavity) can irritate the throat. It can also make the thro at or tonsils more likely to be infected by bacteria. Severe, untreated tonsillitis in child allyssa or adults can cause a pocket of pus (abscess) to form near the tonsil. Your evaluation A medical evaluation can help find the cause of your sore throat. It can also help your [facility] providerchoose the best treatment for you. The evaluation may include a health his tory, physical exam, and diagnostic tests. Health history Your healthcare provider may ask you the following: How long has the sore throat lasted and how have you been treating it? Do you have any other symptoms, such as body aches, fever, or cough? Does your sore throat recur? If so, how often? How many days of school or work have you missed because of a sore throat? Do you have trouble eating or swallowing? Have you been told that you snore or have other sleep problems? Do you have bad breath? Do you cough up bad-tasting mucus? Physical exam During the exam, your healthcare provider checks your ears, nose, and throat for problems. He or she also checks for swelling in the neck, and may listen to your chest. Possible tests Other tests your healthcare provider may perform include: A throat swab to check for bacteria such asstreptococcus (the bacteria that causes str ep throat) A blood test to check for mononucleosis (a viral infection) A chest X-ray to rule out pneumonia, especially if you have a cough Treating a sore throat Treatment depends on many factors. What is the likely cause? Is the problem recent? Does it keep coming back? In many cases, the best thing to do is to treat the symptoms, rest, and l et the problem heal itself. Antibiotics may help clear up some bacterial infections. For ale es of severe or recurring tonsillitis, the tonsils may need to be removed. Relieving your symptoms Don t smoke, and avoid secondhand smoke. For children, try throat sprays or Popsicles. Adults and older children may try lozenges . Drink warm liquids to soothe the throat and help thin mucus. Avoid alcohol, spicy foods, and acidic drinks such as orange juice. These can irritate the throat. Gargle with warm saltwater (1teaspoon of salt [id number] of warm water). Use a humidifier to keep air moist and relieve throat dryness. Try ifwc-sbl-siuwmem pain relievers such as acetaminophen or ibuprofen. Use as directed, and don t exceed the recommended dose. Don t give aspirin to children. Are antibiotics needed? If your sore throat is due to a bacterial infection, antibiotics may speed healing and prev ent complications. Although group A streptococcus ("strep throat" or GAS) is the major treat able infection for a sore throat, GAS causes only 5% to 15% of sore throats in adults who se ek medical care. Most sore throats are caused by cold or flu viruses. And antibiotics don t treat viral illness. In fact, using antibiotics when they re not needed may produce bact eria that are harder to kill. Your healthcare provider will prescribe antibiotics only if he or she thinks they are likely to help. If antibiotics are prescribed Take the medicine exactly as directed. Be sure to finish your prescription even if you re feeling better. And be sure to ask your healthcare provider or pharmacist what side effects are common and what to do about them. Is surgery needed? In some cases, tonsils need to be removed. This is often done as outpatient (same-day) surg merlin. Your healthcare provider may advise removing the tonsils in cases of: Several severe bouts of tonsillitis in a year. Severe episodes include those that lead to missed days of school or work, or that need to be treated with antibiotics. Tonsillitis that causes breathing problems during sleep Tonsillitis caused by food particles collecting in pouches in the tonsils (cryptic tonsi llitis) Call your healthcare provider if any of the following occur: Symptoms worsen, or new symptoms develop. Swollen tonsils make breathing difficult. The pain is severe enough to keep you from drinking liquids. A skin rash, hives, or wheezing develops. Any of these could signal an allergic reaction to antibiotics. Symptoms don t improve within a week. Symptoms don t improve within2 to 3days of starting antibiotics. Date Last Reviewed: 04/06/201619991728-6874 [employer]. [address] [place] [address]. All righ ts reserved. This information is not intended as a substitute for professional medical care. Always follow your healthcare professional's instructions. Viral Upper Respiratory Illness (Adult) You have a viral upper respiratory illness (URI), which is another term for the common cold . This illness is contagious during the first few days. It is spread through the air by coug stephen and sneezing. It may also be spread by direct contact (touching the sick person and the n touching your own eyes, nose, or mouth). Frequent handwashing will decrease risk of spread . Most viral illnesses go away within 7 to 10 days with rest and simple home remedies. Somet imes the illness may last for several weeks. Antibiotics will not kill a virus, and they are generally not prescribed for this condition. Home care If symptoms are severe, rest at home for the first 2 to 3 days. When you resume activity , don't let yourself get too tired. Avoid being exposed to cigarette smoke (yours or others ). You may use acetaminophen or ibuprofen to control pain and fever, unless another medicin e was prescribed.If you have chronic liver or kidney disease, have ever had a stomach ulce r or gastrointestinal bleeding, or are taking blood-thinning medicines, talk with your healt hcare provider before using these medicines. Aspirin should never be given to anyone under 1 8 years of age who is ill with a viral infection or fever. It may cause severe liver or brai n damage. Your appetite may be poor, so a light diet is fine. Avoid dehydration by drinking 6 to 8 glasses of fluids per day (water, soft drinks, juices, tea, or soup). Extra fluids will hel p loosen secretions in the nose and lungs. Pzgf-cic-ezpibys cold medicines will not shorten the length of time you re sick, but t hey may be helpful for the following symptoms: cough, sore throat, and nasal and sinus conge stion. (Note: Do not use decongestants if you have high blood pressure.) Follow-up care Follow up with your healthcare provider, or as advised. When to seek medical advice Call your healthcare provider right away if any of these occur: Cough with lots of colored sputum (mucus) Severe headache; face, neck, or ear pain Difficultyswallowingdue to throat pain Fever of 100.4F (38C) or higher, or as directed by your healthcare provider Call 911 Call 911 if any of these occur: Chest pain, shortness of breath, wheezing, or difficulty breathing Coughing up blood Inability to swallow due to throat pain Date Last Reviewed: 03/19/201519999016-9834 [employer]. [address] [place] [address]. All righ ts reserved. This information is not intended as a substitute for professional medical care. Always follow your healthcare professional's instructions. External Ear Infection (Adult) External otitis (also called swimmer s ear ) is an infection in the ear canal. It is often caused by bacteria or fungus. It can occur a few days after water gets trapped in the ear canal (from swimming or bathing). It can also occur after cleaning too deeply in the ea r canal with a cotton swab or other object. Sometimes, hair care products get into the ear c anal and cause this problem. Symptoms can include pain, fever, itching, redness, drainage, or swelling of the ear canal. Temporary hearing loss may also occur. Home care Do not try to clean the ear canal. This can push pus and bacteria deeper into the canal. Use prescribed ear drops as directed. These help reduce swelling and fight the infection . If an ear wick was placed in the ear canal, apply drops right onto the end of the wick. Th e wick will draw the medicine into the ear canal even if it is swollen closed. A cotton ball may be loosely placed in the outer ear to absorb any drainage. You may use acetaminophen or ibuprofen to control pain, unless another medicinewas pre scribed. Note: If you have chronic liver or kidney disease or ever had a stomach ulcer or GI bleeding, talk to your healthcare provider before taking any of these medicines. Do not allow water to get into your ear when bathing. Also, don't swim until the infecti on has cleared. Prevention Keep your ears dry. This helps lower the risk of infection. Dry your ears with a towel o r chair pad maker after getting wet. Also, use ear plugs when swimming. Do not stick any objects in the ear to remove wax. If you feel water trapped in your ear, use ear drops right away. You can get these drops over the counter at most drugstores. They work by removing water from the ear canal. Follow-up care Follow up with your healthcare provider in 1 week, or as advised. When to seek medical advice Call your healthcare provider right away if any of these occur: Ear pain becomes worse or doesn t improve after 3 days of treatment Redness or swelling of the outer ear occurs or gets worse Headache Painful or stiff neck Drowsiness or confusion Fever of 100.4F (38C) or higher, or as directed by your healthcare provider Seizure Date Last Reviewed: 04/06/201719992956-6669 [employer]. [address] [place] [address], [place] [address]. All righ ts reserved. This information is not intended as a substitute for professional medical care. Always follow your healthcare professional's instructions. documented in this encounter Progress Notes Saira Paige ARNP - 03/12/2018 11:40 AM PDTFormatting of this note might be differen t from the original. Subjective: Isidro Viera is a 67 y.o. male who presents to the clinic with a complaint of URI (x 2 wk; assoc. with cough, sore throat, pnd, chills ) HPI Allergies Allergen Reactions Iodine Rash Medications: Patient Reported Taking Dosage ascorbic acid (VITAMIN C) 500 mg tablet (Taking) Take 500 mg by mouth Daily. levothyroxine (SYNTHROID) 50 mcg tablet (Taking) Take 50 mcg by mouth every morning (befo re breakfast). levothyroxine (SYNTHROID) 50 mcg tablet (Taking/Discontinued) Multiple Vitamins-Minerals (MENS 50+ MULTI VITAMIN/MIN) TABS (Taking) Take 1 tablet by mo uth Daily. Past Medical History He has no past medical history on file. Past Surgical History He has no past surgical history on file. Social History Substance Use Topics Smoking status: Never Smoker Smokeless tobacco: Never Used Alcohol use No Review of Systems See HPI Objective: Vitals: 03/12/18 1138 BP: 140/80 Pulse: 76 Resp: 20 Temp: 36.9 C (98.5 F) TempSrc: Oral SpO2: 97% Weight: 90.7 kg (200 lb) Height: 1.765 m (5' 9.5") No LMP for male patient. Physical Exam Recent Results (from the past 24 hour(s)) POCT Streptococcus A NAAT Result Value Ref Range Group A Strep, DNA POC Negative Negative Internal QC Acceptable Acceptable CULTURE SENT TO LAB Assessment: 1. Acute otitis externa of both ears, unspecified type sfvholkv-bbydtajnb-ianxpkhwytpzgs ( CORTISPORIN) 3.5-45579-8 otic suspension 2. Viral illness 3. Sore throat POCT Streptococcus A NAAT Culture, Respiratory, Upper Plan: 1. Acute otitis externa of both ears, unspecified type - inkeygsq-vczrfrtvu-hopsapeaqczztr (CORTISPORIN) 3.5-00226-0 otic suspension; Place 3 drop s into both ears 3 times daily for 10 days. Dispense: 5 mL; Refill: 0 2. Viral illness 3. Sore throat - POCT Streptococcus A NAAT - Culture, Respiratory, Upper See AVS for patient instructions. Diagnosis and plan including medications and side effects were discussed with the patient a nd information handout was given. Patient voices understanding of the plan and all questions were answered. Return if symptoms worsen or fail to improve. ocapriSaira, CUSTOMER OPERATIONS INTERN - 03/12/2018 11:40 AM PDTFormatting o f this note might be different from the original. Subjective: Isidro Viera is a 67 y.o. male who presents to the clinic with a complaint of URI (x 2 wk; assoc. with cough, sore throat, pnd, chills ) Began with a sore throat 2 weeks ago. URI This is a new problem. The current episode started 1 to 4 weeks ago. The problem has been w axing and waning. Maximum temperature: subjective hot and cold, chills, sweating. Associated symptoms include congestion, coughing, rhinorrhea, sinus pain and a sore throat. Pertinent negatives include no abdominal pain, diarrhea, ear pain, nausea, plugged ear sensation, snee zing or wheezing. He has tried nothing (uses activated charcoal) for the symptoms. The treat ment provided mild relief. Allergies Allergen Reactions Iodine Rash Medications: Patient Reported Taking Dosage ascorbic acid (VITAMIN C) 500 mg tablet (Taking) Take 500 mg by mouth Daily. levothyroxine (SYNTHROID) 50 mcg tablet (Taking) Take 50 mcg by mouth every morning (befo re breakfast). levothyroxine (SYNTHROID) 50 mcg tablet (Taking/Discontinued) Multiple Vitamins-Minerals (MENS 50+ MULTI VITAMIN/MIN) TABS (Taking) Take 1 tablet by mo uth Daily. Past Medical History He has no past medical history on file. Past Surgical History He has no past surgical history on file. Social History Substance Use Topics Smoking status: Never Smoker Smokeless tobacco: Never Used Alcohol use No Review of Systems HENT: Positive for congestion, postnasal drip, rhinorrhea, sinus pain, sinus pressure, sore throat and voice change (lost voice x 1 day). Negative for ear pain, sneezing and trouble s wallowing. Respiratory: Positive for cough. Negative for shortness of breath and wheezing. Gastrointestinal: Negative for abdominal pain, constipation, diarrhea and nausea. See HPI Objective: Vitals: 03/12/18 1138 BP: 140/80 Pulse: 76 Resp: 20 Temp: 36.9 C (98.5 F) TempSrc: Oral SpO2: 97% Weight: 90.7 kg (200 lb) Height: 1.765 m (5' 9.5") No LMP for male patient. Physical Exam Constitutional: He is oriented to person, place, and time. He appears well-developed and we ll-nourished. No distress. HENT: Head: Normocephalic and atraumatic. Right Ear: Tympanic membrane, external ear and ear canal normal. No middle ear effusion. Left Ear: Tympanic membrane, external ear and ear canal normal. No middle ear effusion. Nose: Nose normal. Mouth/Throat: Uvula is midline and mucous membranes are normal. No oropharyngeal exudate, p osterior oropharyngeal edema, posterior oropharyngeal erythema or tonsillar abscesses. Eyes: Pupils are equal, round, and reactive to light. Conjunctivae and lids are normal. Neck: Trachea normal. Neck supple. Cardiovascular: Normal rate, regular rhythm, S1 normal and S2 normal. Exam reveals no gall op, no distant heart sounds and no friction rub. No murmur heard. Pulmonary/Chest: Effort normal. No respiratory distress. He has no decreased breath sounds. He has no wheezes. He has no rhonchi. He has no rales. Lymphadenopathy: Head (right side): No tonsillar adenopathy present. Head (left side): No tonsillar adenopathy present. He has no cervical adenopathy. Neurological: He is alert and oriented to person, place, and time. Skin: Skin is warm and dry. No rash noted. Psychiatric: He has a normal mood and affect. His behavior is normal. Recent Results (from the past 24 hour(s)) POCT Streptococcus A NAAT Result Value Ref Range Group A Strep, DNA POC Negative Negative Internal QC Acceptable Acceptable CULTURE SENT TO LAB Assessment: 1. Acute otitis externa of both ears, unspecified type oxktrnuf-qczlsqyly-loyntggdxbjebo ( CORTISPORIN) 3.5-13836-1 otic suspension 2. Viral illness 3. Sore throat POCT Streptococcus A NAAT Plan: 1. Acute otitis externa of both ears, unspecified type - whvmzwgi-tcaqxnesj-benytwapdhpcvw (CORTISPORIN) 3.5-02746-6 otic suspension; Place 3 drop s into both ears 3 times daily for 10 days. Dispense: 5 mL; Refill: 0 2. Viral illness 3. Sore throat - POCT Streptococcus A NAAT See AVS for patient instructions.- Use antibiotic drops as prescribed, complete entire cour se. - Ibuprofen as needed for pain/fever, may alternate with Tylenol for better coverage. - Warm compresses to ear as needed/tolerated. - Do not insert objects into the ear canal, may wipe away drainage externally with a tissue . - Rest, increase fluid intake, good hand hygiene. Diagnosis and plan including medications and side effects were discussed with the patient a nd information handout was given. Patient voices understanding of the plan and all questions were answered. Return if symptoms worsen or fail to improve. documented in this encounter Miscellaneous Notes Addendum Note - Saira Paige ARNP - 03/12/2018 11:40 AM PDT Addended by: SMITH PAIGE SA on: 03/12/2018 12:29 Modules accepted: Orders documented in this encounter Plan of Treatment +--------+---------+ + + + | Date | Type | Specialty | Care Team | Description | +--------+---------+ + + + | 04/14/ | Office | Cardiology | Spencer Brantley, | | | 2019 | Visit | | MD Yandy Bonilla | | | | | | [facility], | | | | | | [place] [address] | | | | | | [phone] | | | | | | | | +--------+---------+ + + + documented as of this encounter Procedures + +--------+ + + + | Procedure Name | Priori | Date/Time | Associated Diagnosis | Comments | | | ty | | | | + +--------+ + + + | POCT STREPTOCOCCUS A | Routin | 03/12/2018 | Sore throat | Results for this | | NAAT | e | 12:02 PM | | procedure are in the | | | | PDT | | results section. | + +--------+ + + + | CULTURE, | Routin | 03/12/2018 | Sore throat | Results for this | | RESPIRATORY, UPPER | e | 11:45 AM | | procedure are in the | | | | PDT | | results section. | + +--------+ + + + documented in this encounter Results POCT Streptococcus A NAAT (03/12/2018 12:02 PM PDT) + + + + + + | Component | Value | Ref Range | Performed | Pathologist | | | | | At | Signature | + + + + + + | Group A | Negative | Negative | | | | Strep, DNA | | | | | | POC | | | | | + + + + + + | Internal QC | Acceptable | Acceptable | | | + + + + + + | CULTURE | | | | | | SENT TO LAB | | | | | + + + + + + + + | Specimen | + + | | + + Culture, Respiratory, Upper (03/12/2018 11:45 AM PDT) + + + + + + | Component | Value | Ref Range | Performed | Pathologist | | | | | At | Signature | + + + + + + | Culture | No Group A Streptococcus | | [facility] | | | | isolated | | [facility] | [facility] | | | | | | [facility] | | + + + + + + | Culture | 3+ Usual Respiratory | | [facility] | | | | [facility] | | [facility] | [facility] - | | | | | | [facility] | | + + + + + + + + | Specimen | + + | Body Fluid - | | Specimen from throat | | (specimen) | + + + + + + + | Performing | Address | City/State/Zipcode | Phone Number | | Organization | | | | + + + + + | [facility] | [address] | [place], [place] | [phone] | | [facility] | | [address] | | | - LABORATORY | | | | + + + + + documented in this encounter Visit Diagnoses + + | Diagnosis | + + | Acute otitis externa of both ears, unspecified type - Primary | + + | Viral illness Unspecified viral infection, in conditions classified elsewhere and of | | unspecified site | + + | Sore throat Acute pharyngitis | + + documented in this encounter
--- OUTSIDE RECORDS SUMMARY | ~2020-01-04 | XMS | Encounter Summary ---
Demographics + + + | Address | [address] | | | [place] [address] | + + + | Home Phone | | + + + | Preferred Language | Unknown | + + + | Marital Status | | + + + | Caodaism Affiliation | Unknown | + + + | Race | Unknown | + + + | Ethnic Group | Unknown | + + + Author + + + | Author | [facility] | | | and [place] | + + + | Organization | [facility] | | [...] Team Providers + +------+ + | Care Income Tax Analyst Name | Role | Phone | + +------+ + | Neida Noyola | PCP | | + +------+ + Encounter Details +--------+ + + + + | Date | Type | Department | Care Team | Description | +--------+ + + + + | 12/26/ | Abstract | [facility] | Provider, | Hyponatremia; Second | | 2019 | | CARDIOLOGY [address] | [address] | degree AV block; | | | | [place], | [address] | Essential | | | | [place] [address] | [place] [address] | hypertension | | | | [phone] | | | +--------+ + + + [...] | | 2020 | Visit | | [address] | | | | | | [place], | | | | | | [place] [address] | | | | | | [phone] | | | | | | | | +--------+---------+ + + + documented as of this encounter Procedures + +--------+ + + + | Procedure Name | Priori | Date/Time | Associated Diagnosis | Comments | | | ty | | | | + +--------+ + + + | EXTERNAL LAB: BUN | Routin | 12/20/2019 | | Results for this | | | e | | | procedure are in the | | | | | | results section. | + +--------+ + + + | EXTERNAL LAB: | Routin | 12/20/2019 | | Results for this | | GLUCOSE | e | | | procedure are in the | | | | | | results section. | + +--------+ + + + | EXTERNAL LAB: LIPASE | Routin | 12/20/2019 | | Results for this | | | e | | | procedure are in the | | | | | | results section. | + +--------+ + + + | EXTERNAL LAB: ALT | Routin | 12/20/2019 | | Results for this | | | e | | | procedure are in the | | | | | | results section. | + +--------+ + + + | EXTERNAL LAB: AST | Routin | 12/20/2019 | | Results for this | | | e | | | procedure are in the | | | | | | results section. | + +--------+ + + + | EXTERNAL LAB: | Routin | 12/20/2019 | | Results for this | | ALKALINE PHOSPHATASE | e | | | procedure are in the | | | | | | results section. | + +--------+ + + + | EXTERNAL LAB: | Routin | 12/20/2019 | | Results for this | | BILIRUBIN, TOTAL | e | | | procedure are in the | | | | | | results section. | + +--------+ + + + | EXTERNAL LAB: | Routin | 12/20/2019 | | Results for this | | ALBUMIN | e | | | procedure are in the | | | | | | results section. | + +--------+ + + + | EXTERNAL LAB: | Routin | 12/20/2019 | | Results for this | | PROTEIN, TOTAL | e | | | procedure are in the | | | | | | results section. | + +--------+ + + + | EXTERNAL LAB: | Routin | 12/20/2019 | | Results for this | | MAGNESIUM | e | | | procedure are in the | | | | | | results section. | + +--------+ + + + | EXTERNAL LAB: | Routin | 12/20/2019 | | Results for this | | CALCIUM | e | | | procedure are in the | | | | | | results section. | + +--------+ + + + | EXTERNAL LAB: CARBON | Routin | 12/20/2019 | | Results for this | | DIOXIDE | e | | | procedure are in the | | | | | | results section. | + +--------+ + + + | EXTERNAL LAB: | Routin | 12/20/2019 | | Results for this | | CHLORIDE | e | | | procedure are in the | | | | | | results section. | + +--------+ + + + | EXTERNAL LAB: | Routin | 12/20/2019 | | Results for this | | POTASSIUM | e | | | procedure are in the | | | | | | results section. | + +--------+ + + + | EXTERNAL LAB: SODIUM | Routin | 12/20/2019 | | Results for this | | | e | | | procedure are in the | | | | | | results section. | + +--------+ + + + | EXTERNAL LAB: CBC | Routin | 12/20/2019 | | Results for this | | | e | | | procedure are in the | | | | | | results section. | + +--------+ + + + | EXTERNAL LAB: TSH | Routin | 12/20/2019 | | Results for this | | | e | | | procedure are in the | | | | | | results section. | + +--------+ + + + | EXTERNAL LAB: EGFR | Routin | 12/20/2019 | | Results for this | | | e | | | procedure are in the | | | | | | results section. | + +--------+ + + + | EXTERNAL LAB: | Routin | 12/20/2019 | | Results for this | | CREATININE | e | | | procedure are in the | | | | | | results section. | + +--------+ + + + | CBC WITH | Routin | 12/20/2019 | | Results for this | | DIFFERENTIAL | e | | | procedure are in the | | | | | | results section. | + +--------+ + + + | COMPREHENSIVE | Routin | 12/20/2019 | | Results for this | | METABOLIC PANEL | e | | | procedure are in the | | | | | | results section. | + +--------+ + + + documented in this encounter Results CBC with Differential (12/20/2019) + +-------+ + + + | Component | Value | Ref Range | Performed | Pathologist | | | | | At | Signature | + +-------+ + + + | MCH | 32.0 | 26.0 - 33.0 pg | | | + +-------+ + + + | MCHC | 35.0 | 31.0 - 37.0 | | | | | | g/dL | | | + +-------+ + + + | % Basophils | 0.5 | 1.0 % | | | + +-------+ + + + + + | Specimen | + + | Blood | + + Comprehensive Metabolic Panel (12/20/2019) + +-------+ + + + | Component | Value | Ref Range | Performed | Pathologist | | | | | At | Signature | + +-------+ + + + | Anion Gap | 13 | 7 - 21 mmol/L | | | + +-------+ + + + | Bun/Creatin | 11 | 6 - 23 | | | | ine | | | | | + +-------+ + + + | Globulin | 2.5 | 1.8 - 3.5 | | | + +-------+ + + + | Albumin/Miriam | 1.7 | 1.1 - 2.4 | | | | bulin Ratio | | | | | + +-------+ + + + + + | Specimen | + + | Blood | + + External Lab: BUN (12/20/2019) + +-------+ + + + | Component | Value | Ref Range | Performed | Pathologist | | | | | At | Signature | + +-------+ + + + | BUN, | 12.6 | 6 - 23 | EXTERNAL | | | External | | | LAB | | + +-------+ + + + + + | Resulting Agency Comment | + + | [facility] | + + + +---------+ + + | Performing | Address | City/State/Zipcode | Phone Number | | Organization | | | | + +---------+ + + | EXTERNAL LAB | | | | + +---------+ + + External Lab: Glucose (12/20/2019) + +---------+ + + + | Component | Value | Ref Range | Performed | Pathologist | | | | | At | Signature | + +---------+ + + + | Glucose, | 106 (A) | 70 - 100 | EXTERNAL | | | External | | | LAB | | + +---------+ + + + + + | Resulting Agency Comment | + + | [facility] | + + + +---------+ + + | Performing | Address | City/State/Zipcode | Phone Number | | Organization | | | | + +---------+ + + | EXTERNAL LAB | | | | + +---------+ + + External Lab: Lipase (12/20/2019) + +--------+ + + + | Component | Value | Ref Range | Performed | Pathologist | | | | | At | Signature | + +--------+ + + + | Lipase, | 31 (A) | 1,182 | EXTERNAL | | | External | | | LAB | | + +--------+ + + + + + | Resulting Agency Comment | + + | [facility] | + + + +---------+ + + | Performing | Address | City/State/Zipcode | Phone Number | | Organization | | | | + +---------+ + + | EXTERNAL LAB | | | | + +---------+ + + External Lab: ALT (12/20/2019) + +-------+ + + + | Component | Value | Ref Range | Performed | Pathologist | | | | | At | Signature | + +-------+ + + + | ALT, | 13 | 7 - 52 | EXTERNAL | | | External | | | LAB | | + +-------+ + + + + + | Resulting Agency Comment | + + | [facility] | + + + +---------+ + + | Performing | Address | City/State/Zipcode | Phone Number | | Organization | | | | + +---------+ + + | EXTERNAL LAB | | | | + +---------+ + + External Lab: AST (12/20/2019) + +-------+ + + + | Component | Value | Ref Range | Performed | Pathologist | | | | | At | Signature | + +-------+ + + + | AST, | 24 | 13 - 39 | EXTERNAL | | | External | | | LAB | | + +-------+ + + + + + | Resulting Agency Comment | + + | [facility] | + + + +---------+ + + | Performing | Address | City/State/Zipcode | Phone Number | | Organization | | | | + +---------+ + + | EXTERNAL LAB | | | | + +---------+ + + External Lab: Alkaline Phosphatase (12/20/2019) + +-------+ + + + | Component | Value | Ref Range | Performed | Pathologist | | | | | At | Signature | + +-------+ + + + | ALP, | 43 | | EXTERNAL | | | External | | | LAB | | + +-------+ + + + + + | Resulting Agency Comment | + + | [facility] | + + + +---------+ + + | Performing | Address | City/State/Zipcode | Phone Number | | Organization | | | | + +---------+ + + | EXTERNAL LAB | | | | + +---------+ + + External Lab: Bilirubin, Total (12/20/2019) + +---------+ + + + | Component | Value | Ref Range | Performed | Pathologist | | | | | At | Signature | + +---------+ + + + | Bilirubin, | 1.3 (A) | 0 - 1.2 | EXTERNAL | | | Total, | | | LAB | | | External | | | | | + +---------+ + + + + + | Resulting Agency Comment | + + | [facility] | + + + +---------+ + + | Performing | Address | City/State/Zipcode | Phone Number | | Organization | | | | + +---------+ + + | EXTERNAL LAB | | | | + +---------+ + + External Lab: Albumin (12/20/2019) + +-------+ + + + | Component | Value | Ref Range | Performed | Pathologist | | | | | At | Signature | + +-------+ + + + | Albumin, | 4.3 | 3.5 - 5 | EXTERNAL | | | External | | | LAB | | + +-------+ + + + + + | Resulting Agency Comment | + + | [facility] | + + + +---------+ + + | Performing | Address | City/State/Zipcode | Phone Number | | Organization | | | | + +---------+ + + | EXTERNAL LAB | | | | + +---------+ + + External Lab: Protein, Total (12/20/2019) + +-------+ + + + | Component | Value | Ref Range | Performed | Pathologist | | | | | At | Signature | + +-------+ + + + | Protein, | 6.8 | 6 - 8.3 | EXTERNAL | | | Total, | | | LAB | | | External | | | | | + +-------+ + + + + + | Resulting Agency Comment | + + | [facility] | + + + +---------+ + + | Performing | Address | City/State/Zipcode | Phone Number | | Organization | | | | + +---------+ + + | EXTERNAL LAB | | | | + +---------+ + + External Lab: Magnesium (12/20/2019) + +-------+ + + + | Component | Value | Ref Range | Performed | Pathologist | | | | | At | Signature | + +-------+ + + + | Magnesium, | 1.7 | 1.7 - 2.5 | EXTERNAL | | | External | | | LAB | | + +-------+ + + + + + | Resulting Agency Comment | + + | [facility] | + + + +---------+ + + | Performing | Address | City/State/Zipcode | Phone Number | | Organization | | | | + +---------+ + + | EXTERNAL LAB | | | | + +---------+ + + External Lab: Calcium (12/20/2019) + +-------+ + + + | Component | Value | Ref Range | Performed | Pathologist | | | | | At | Signature | + +-------+ + + + | Calcium, | 9 | 8.5 - 10.3 | EXTERNAL | | | External | | | LAB | | + +-------+ + + + + + | Resulting Agency Comment | + + | [facility] | + + + +---------+ + + | Performing | Address | City/State/Zipcode | Phone Number | | Organization | | | | + +---------+ + + | EXTERNAL LAB | | | | + +---------+ + + External Lab: Carbon Dioxide (12/20/2019) + +-------+ + + + | Component | Value | Ref Range | Performed | Pathologist | | | | | At | Signature | + +-------+ + + + | Carbon | 25 | 19 - 31 | EXTERNAL | | | Dioxide, | | | LAB | | | External | | | | | + +-------+ + + + + + | Resulting Agency Comment | + + | [facility] | + + + +---------+ + + | Performing | Address | City/State/Zipcode | Phone Number | | Organization | | | | + +---------+ + + | EXTERNAL LAB | | | | + +---------+ + + External Lab: Chloride (12/20/2019) + +--------+ + + + | Component | Value | Ref Range | Performed | Pathologist | | | | | At | Signature | + +--------+ + + + | Chloride, | 83 (A) | 95 - 112 | EXTERNAL | | | External | | | LAB | | + +--------+ + + + + + | Resulting Agency Comment | + + | [facility] | + + + +---------+ + + | Performing | Address | City/State/Zipcode | Phone Number | | Organization | | | | + +---------+ + + | EXTERNAL LAB | | | | + +---------+ + + External Lab: Potassium (12/20/2019) + +-------+ + + + | Component | Value | Ref Range | Performed | Pathologist | | | | | At | Signature | + +-------+ + + + | Potassium, | 3.6 | 3.6 - 5.1 | EXTERNAL | | | External | | | LAB | | + +-------+ + + + + + | Resulting Agency Comment | + + | [facility] | + + + +---------+ + + | Performing | Address | City/State/Zipcode | Phone Number | | Organization | | | | + +---------+ + + | EXTERNAL LAB | | | | + +---------+ + + External Lab: Sodium (12/20/2019) + +---------+ + + + | Component | Value | Ref Range | Performed | Pathologist | | | | | At | Signature | + +---------+ + + + | Sodium, | 117 (A) | 132 - 143 | EXTERNAL | | | External | | | LAB | | + +---------+ + + + + + | Resulting Agency Comment | + + | [facility] | + + + +---------+ + + | Performing | Address | City/State/Zipcode | Phone Number | | Organization | | | | + +---------+ + + | EXTERNAL LAB | | | | + +---------+ + + External Lab: CBC (12/20/2019) + + + + + + | Component | Value | Ref Range | Performed | Pathologist | | | | | At | Signature | + + + + + + | WBC, | 7.4 | 4.5 - 11 | EXTERNAL | | | External | | | LAB | | + + + + + + | HGB, | 12.1 (A) | 13.5 - 18 | EXTERNAL | | | External | | | LAB | | + + + + + + | HCT, | 34.4 (A) | 41 - 50 | EXTERNAL | | | External | | | LAB | | + + + + + + | PLT, | 230 | 140 - 440 | EXTERNAL | | | External | | | LAB | | + + + + + + | Neutrophils | 71.7 | 39 - 80 | EXTERNAL | | | %, | | | LAB | | | External | | | | | + + + + + + | Lymphocytes | 16.4 (A) | 24 - 44 | EXTERNAL | | | %, | | | LAB | | | External | | | | | + + + + + + | Monocytes | 11 | 0 - 12 | EXTERNAL | | | %, External | | | LAB | | + + + + + + | Eosinophils | 0.4 | 0 - 6 | EXTERNAL | | | %, | | | LAB | | | External | | | | | + + + + + + | RBC, | 3.83 (A) | 4 - 5.7 | EXTERNAL | | | External | | | LAB | | + + + + + + | MCV, | 90 | 81 - 99 | EXTERNAL | | | External | | | LAB | | + + + + + + | RDW, | 13.1 | 10.5 - 15 | EXTERNAL | | | External | | | LAB | | + + + + + + + + | Resulting Agency Comment | + + | [facility] | + + + +---------+ + + | Performing | Address | City/State/Zipcode | Phone Number | | Organization | | | | + +---------+ + + | EXTERNAL LAB | | | | + +---------+ + + External Lab: TSH (12/20/2019) + + + + + + | Component | Value | Ref Range | Performed | Pathologist | | | | | At | Signature | + + + + + + | TSH, | 1.87Comment: 3rd | 0.27 - 4.2 | EXTERNAL | | | External | Generation | | LAB | | + + + + + + + + | Specimen | + + | Blood | + + + + | Resulting Agency Comment | + + | [facility] | + + + +---------+ + + | Performing | Address | City/State/Zipcode | Phone Number | | Organization | | | | + +---------+ + + | EXTERNAL LAB | | | | + +---------+ + + External Lab: eGFR (12/20/2019) + +-------+ + + + | Component | Value | Ref Range | Performed | Pathologist | | | | | At | Signature | + +-------+ + + + | eGFR, | 98 | | EXTERNAL | | | External | | | LAB | | + +-------+ + + + + + | Specimen | + + | Blood | + + + + | Resulting Agency Comment | + + | [facility] | + + + +---------+ + + | Performing | Address | City/State/Zipcode | Phone Number | | Organization | | | | + +---------+ + + | EXTERNAL LAB | | | | + +---------+ + + External Lab: Creatinine (12/20/2019) + +-------+ + + + | Component | Value | Ref Range | Performed | Pathologist | | | | | At | Signature | + +-------+ + + + | Creatinine, | 0.79 | 0.7 - 1.25 | EXTERNAL | | | External | | | LAB | | + +-------+ + + + + + | Specimen | + + | Blood | + + + + | Resulting Agency Comment | + + | [facility] | + + + +---------+ + + | Performing | Address | City/State/Zipcode | Phone Number | | Organization | | | | + +---------+ + + | EXTERNAL LAB | | | | + +---------+ + + documented in this encounter Visit Diagnoses + + | Diagnosis | + + | Hyponatremia Hyposmolality and/or hyponatremia | + + | Second degree AV block Other second degree atrioventricular block | + + | Essential hypertension Unspecified essential hypertension | + + documented in this encounter"
--- OUTSIDE RECORDS SUMMARY | ~2020-01-04 | XMS | Encounter Summary ---
Demographics + + + | Address | [address] | | | [place] [address] | + + + | Home Phone | | + + + | Preferred Language | Unknown | + + + | Marital Status | | + + + | Shinto Affiliation | Unknown | + + + | Race | Unknown | + + + | Ethnic Group | Unknown | + + + Author + + + | Author | [facility] | | | and [place] | + + + | Organization | [facility] | | | [...] Team Providers + +------+ + | Care Applicator Sprayer Name | Role | Phone | + [...] | | | | Second | MD Spencer | Electrodiagno | | | | | degree AV | [address] | [address] | | | | | block | [address] [place] [address] | [place] | | | | | Procedures | [place], | [place], [place] | | | | | Holter | [place] [address] | [address] | | | | | monitor - 48 | Phone: | Phone: | | | | | hour | [phone] | [phone] | | | | | | Fax: | Fax: | | | | | | [phone] | [phone] | +--------+--------+ + + + + Reason for Visit Diagnostic/Screening (Routine) +--------+--------+ + + + + | Status | Reason | Specialty | Diagnoses / | Referred By | Referred To | | | | | Procedures | Contact | Contact | +--------+--------+ + + + + | Closed | | Radiology | Diagnoses | Maldonado Brantley | | | | | Second | MD [place] | Electrodiagno | | | | | degree AV | [address] | [address] | | | | | block | [address] [place] [address] | [place] | | | | | Procedures | [place], | [place] | | | | | [place] | [place] [address] | [address] | | | | | monitor - [address] | Phone: | Phone: | | | | | hour | [phone] | [phone] | | | | | | Fax: | Fax: | | | | | | [phone] | [phone] | +--------+--------+ + + + + Encounter Details +--------+ + + + + | Date | Type | Department | Care Team | Description | +--------+ + + + + | 12/29/ | Hospital | [facility] | [place] Brantley, | Second degree AV | | 2020 | Encounter | [facility] | MD [address] [place] | block | | | | MEDICINE [address] [place], | | | | | [place], | [place] [address] | | | | | [place] [address] | [phone] | | | | | [phone] | | | +--------+ + + + [...] + + documented as of this encounter Medications at Time of Discharge + + + +---------+--------+ + | Medication | Sig | Dispensed | Refills | Start | End Date | | | | | | Date | | + + + +---------+--------+ + | ascorbic acid | Take 500 mg by mouth | | 0 | | | | (VITAMIN C) 500 mg | Daily. | | | | | | tablet | | | | | | + + + +---------+--------+ + | lisinopril | Take 10 mg by mouth | | 0 | | | | (PRINIVIL, ZESTRIL) | Daily | | | | | | 10 mg tablet | | | | | | + + + +---------+--------+ + | magnesium oxide | Take 400 mg by mouth | | 0 | | | | (MAG-OX) 400 mg | Daily | | | | | | tablet | | | | | | + + + +---------+--------+ + | Multiple | Take 1 tablet by | | 0 | | | | Vitamins-Minerals | mouth Daily. | | | | | | (MENS 50+ MULTI | | | | | | | VITAMIN/MIN) TABS | | | | | | + + + +---------+--------+ + | selenium 50 MCG | Take 50 mcg by mouth | | 0 | | | | TABS | Daily | | | | | + + + +---------+--------+ + | thyroid | Take 65 mg by mouth | | 0 | | | | (NATURE-THROID, | 2 times daily | | | | | | WESTHROID) 65 MG | | | | | | | tablet | | | | | | + + + +---------+--------+ + documented as of this encounter Plan [...] [place], | | | | | | [place] [address] | | | | | | [phone] | | | | | | | | +--------+---------+ + + + + +------+--------+ + + | Name | Type | Priori | Associated Diagnoses | Order Schedule | | | | ty | | | + +------+--------+ + + | Holter monitor - 48 | ECG | Routin | Second degree AV | One Time for 1 | | hour | | e | block | Occurrences starting | | | | | | 12/30/2019 until | | | | | | 12/30/2019 | + +------+--------+ + + documented as of this encounter Visit Diagnoses + + | Diagnosis | + + | Second degree AV block Other second degree atrioventricular block | + + documented in this encounter"
--- OUTSIDE RECORDS SUMMARY | ~2020-01-04 | XMS | Encounter Summary ---
Demographics + + + | Address | [address] | | | [place] [address] | + + + | Home Phone | | + + + | Preferred Language | Unknown | + + + | Marital Status | | + + + | Faith Affiliation | Unknown | + + + | Race | Unknown | + + + | Ethnic Group | Unknown | + + + Author + + + | Author | [facility] | | | and [place] | + + + | Organization | [facility] | | [...] Team Providers + +------+ + | Care Exercise Specialist Name | Role | Phone | + +------+ + | Neida Noyola | PCP | | + +------+ + Reason for Visit + + + | Reason | Comments | + + + | Altered Mental | | | Status | | + + + Encounter Details +--------+ + + + + | Date | Type | Department | Care Team | Description | +--------+ + + + + | 12/29/ | Emergency | [facility] | Jake Earl, | Speech and language | | 2019 | | [facility] | MD [address] | deficits (Primary | | | | CENTER [address] | [place] | Dx); Elevated blood | | | | [place], [place] | [address] | pressure reading; | | | | [address] | | Chronic hyponatremia | | | | [phone] | | | +--------+ + + + [...] this encounter Last Filed Vital Signs + +---------+ + + | Vital Sign | Reading | Time Taken | Comments | + +---------+ + + | Blood Pressure | 147/94 | 12/30/2019 3:45 PM | | | | | PDT | | + +---------+ + + | Pulse | 66 | 12/30/2019 3:45 PM | | | | | PDT | | + +---------+ + + | Temperature | - | - | | + +---------+ + + | Respiratory Rate | 14 | 12/30/2019 12:15 PM | | | | | PDT | | + +---------+ + + | Oxygen Saturation | 96% | 12/30/2019 3:45 PM | Simultaneous filing. | | | | PDT | User may not have | | | | | seen previous data. | + +---------+ + + | Inhaled Oxygen | - | - | | | Concentration | | | | + +---------+ + + | Weight | - | - | | + +---------+ + + | Height | - | - | | + +---------+ + + | Body Mass Index | - | - | | + +---------+ + + documented in this encounter Discharge Instructions AttachmentsThe following attachments cannot be sent through Care Everywhere.Hyponatremia, D ischarge Instructions (Ukrainian)Aphasia, What Is (Ukrainian)Dysarthria, What Is (Ukrainian)docume nted in this encounter Medications at Time of Discharge [...] +---------+--------+ + documented as of this encounter ED Notes Jake Earl MD - 12/30/2019 10:47 AM PDTFormatting of this note might be different f rom the original. [facility] EMERGENCY DEPARTMENT ENCOUNTER NOTE [address] [place] [address] PCP:MICHELLE Neri [phone] DIAGNOSIS: ICD-10-CM ICD-9-CM 1. Speech and language deficits F80.9 784.59 R47.9 315.31 2. Elevated blood pressure reading R03.0 796.2 3. Chronic hyponatremia E87.1 276.1 CHIEF COMPLAINT: Chief Complaint Patient presents with Altered Mental Status ED Room: ED07/ED07 01/04/2020 HPI Isidro Viera is a 69 y.o. male who presents to the Emergency Department resents to the ED wi th a history of having essential hypertension, hyponatremia hypothyroidism with a history of intermittent headaches with an onset of being nonverbal since sometime after 6 AM. The pat ient was last visualized normal yesterday by significant other with him at bedside. They sp krystal last night and again this morning at 6 AM. According to the significant other at [facility] e he was noted to be verbally communicative in his normal baseline manner, demeanor and into nation at 6 AM but she has not seen him since yesterday. No recent falls and injuries. The patient contacted the significant other regarding coordination of an appointment today. Prasad bsequent to that the patient was noted to be altered and not able to talk according to the s ignificant other at bedside. No prior histories of stroke. No history of intracranial hemo rrhage. But does have a history of migraine unknown if he has a headache at this time. PAST MEDICAL & SURGICAL HISTORY The patient has a past medical history of Essential hypertension, Hyponatremia, Hypothyroid ism (08/27/2018), and Second degree AV block. The patient has a past surgical history that i ncludes Eye surgery; Colonoscopy; and Thumb amputation. 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 The patient reports that he has never smoked. He has never used smokeless tobacco. He reports that he does not drink alcohol or use drugs. REVIEW OF SYSTEMS As in history of present illness. A 10 system review was otherwise negative. PHYSICAL EXAM VITAL SIGNS: (first vital signs): Pulse: 93 Resp: 19 SpO2: 99 % BP: (!) 176/111 There is n o height or weight on file to calculate BMI. Vitals: 12/30/19 1500 12/30/19 1515 12/30/19 1530 12/30/19 1545 BP: 169/77 (!) 156/95 156/82 (!) 147/94 Pulse: 78 61 60 66 Resp: TempSrc: SpO2: 97% 97% 99% 96% General: Alert, no active distress and not requiring any emergent interventions Eyes: Normal inspection, pupils equal and round, non-icteric sclera ENT: Ears normal Nose normal Pharynx normal Neck: Normal inspection Supple Full ROM Cardiovascular: Normal rate and rhythm, no extra sounds No murmurs rubs or gallops Focal PMI Respiratory: No respiratory distress or wheezing Normal excursion No retractions Abdomen: Soft, non-tender, non-distended Normal active bowel sounds Back: Normal inspection Without tenderness or deformity Skin: Color normal Warm and dry Extremities: NOBLE with equal pulses in the upper and lower extremities bilaterally Neuro: No gross motor/sensory deficit GCS 15 No cerebellar deficits Alert and oriented to person, place, time and situation. EKG 07:19 PDT Sinus rhythm with a second-degree AV block Mobitz type II at 63 bpm Normal QRS and [place] Normal QT and QTc Normal ST/T without acute ischemic changes In comparison to electrocardiogram from December 27, 2019 the patient was in a sinus rhythm wit h a second-degree AV block Mobitz type II at 71 bpm. Nearly identical morphology and appear ance with a very similar rate. 8 bpm slower today. Interpreted independently and contemporaneously by the Emergency [facility] LABS Results for orders placed or performed during the hospital encounter of 12/30/19 CBC with Differential Result Value Ref Range WBC 7.8 4.0 - 11.0 K/uL RBC 4.04 (L) 4.30 - 5.70 M/uL Hemoglobin 12.9 (L) 13.5 - 18.0 g/dL Hematocrit 35.7 (L) 40.0 - 51.0 % MCV 88.4 83.0 - 101.0 fL MCH 31.9 28.0 - 35.0 pg MCHC 36.1 (H) 32.0 - 36.0 g/dL RDW-CV 12.2 <15.0 % RDW-SD 39.4 35.1 - 46.3 fL Platelet Count 269 140 - 440 K/uL MPV 10.2 6.5 - 12.4 fL % Neutrophils 69.4 45.0 - 82.0 % % Lymphocytes 19.0 (L) 20.0 - 45.0 % % Monocytes 10.0 4.0 - 12.0 % % Eosinophils 0.3 0.0 - 5.0 % % Basophils 1.0 0.0 - 1.0 % % Immature Granulocytes 0.3 0.0 - 0.4 % Absolute Neutrophils 5.44 1.80 - 8.50 K/uL Absolute Lymphocytes 1.49 0.60 - 3.20 K/uL Absolute Monocytes 0.78 0.00 - 1.00 K/uL Absolute Eosinophils 0.02 0.00 - 0.40 K/uL Absolute Basophils 0.08 0.00 - 0.10 K/uL Absolute Immature Granulocytes 0.02 0.00 - 0.03 K/uL % nRBC 0 0 - 2 per 100 WBCs Absolute nRBC 0.00 0.00 - 0.01 K/uL Comprehensive Metabolic Panel Result Value Ref Range Na 128 (L) 136 - 145 mmol/L K 3.9 3.4 - 5.1 mmol/L Cl 92 (L) 98 - 107 mmol/L CO2 25 20 - 31 mmol/L Anion Gap 11 3 - 16 mmol/L Glucose 113 (H) 60 - 106 mg/dL BUN 15 9 - 23 mg/dL Creatinine 0.79 0.70 - 1.30 mg/dL eGFR if not >60 >=60 mL/min/1.73m2 Calcium 9.3 8.7 - 10.4 mg/dL Albumin 4.7 3.2 - 4.8 g/dL Bilirubin Total 1.6 (H) 0.3 - 1.2 mg/dL Total Protein 6.9 5.7 - 8.2 g/dL AST 48 (H) 0 - 34 U/L ALT 21 10 - 49 U/L Alkaline Phosphatase 55 46 - 116 U/L Globulin 2.2 2.1 - 3.8 g/dL Albumin/Globulin Ratio 2.1 (H) 0.8 - 1.9 BUN/Creatinine Ratio 19.0 Protime INR Result Value Ref Range Prothrombin Time 13.2 11.3 - 13.9 seconds INR 1.0 0.9 - 1.1 PTT Result Value Ref Range aPTT 30 22 - 36 seconds Troponin I Result Value Ref Range Troponin I 0.02 <0.06 ng/mL Extra Gold Top Tube Result Value Ref Range Extra Gold Top Tube Done Extra Green Top Tube Result Value Ref Range Extra Green Top Tube Done Extra Lavender Top Tube Result Value Ref Range Extra Lavender Top Tube Done Extra Arango Top Tube Result Value Ref Range Extra Arango Top Tube Done ECG 12 lead Result Value Ref Range VENTRICULAR RATE EKG 63 BPM ATRIAL RATE 69 BPM P-R INTERVAL 216 ms QRS DURATION 106 ms Q-T INTERVAL 404 ms Q-T INTERVAL (CORRECTED) 413 ms P WAVE AXIS 64 degrees QRS AXIS 5 degrees T AXIS 36 degrees INTERPRETATION TEXT Sinus rhythm with 1st degree AV block and single non-conducted P wave Abnormal ECG When compared with ECG of 27-DEC-2019 07:57, No significant change was found Confirmed by PJ WALTERS MD ([id number]) on 12/31/2019 6:25:18 AM IMAGING STUIDES (X-Rays interpreted by ED Physician) Recent Results (from the past 360 hour(s)) CT Angiogram Head Neck Acute Stroke Narrative EXAM: CT ANGIOGRAM HEAD NECK ACUTE STROKE dated 12/30/2019 11:00 AM HISTORY: Acute Stroke evaluation, concern for arterial COMPARISON: None. TECHNIQUE: Noncontrast imaging is performed through the brain. Post contrast imaging is performed through the head and neck vasculature following the arterial timed injection of [ ] ml of Omnipaque 350. Images are reconstructed. DOSE: DLP 998.21 mGy per centimeter FINDINGS: NONCONTRAST HEAD: Brain: Ventricles, sulci and cisterns are unremarkable for age. No areas of increased attenuation to suggest intracranial hemorrhage. There is no mass, mass effect, or midline shift. There are no abnormal extra-axial fluid or air collections. There is preservation of the arango-white differentiation at this time. There is no significant white matter disease. Scalp/calvarium: The scalp and skull are intact and are unremarkable. Sinuses/orbits/mastoids: The visible mastoid air cells and paranasal sinuses are clear. The globes and retroconal contents are intact and are unremarkable. HEAD CTA: The intracranial right vertebral artery is hypoplastic but patent. The left is widely patent. Posterior inferior cerebellar arteries are patent. There is a left anterior inferior cerebellar artery. There are patent bilateral superior cerebellar arteries. The posterior cerebral arteries bilaterally are near origin. There are bilateral hypoplastic P1 segments. The intracranial internal carotid arteries are patent bilaterally. The middle cerebral arteries are patent bilaterally. The anterior cerebral arteries are patent. There is no definite anterior communicating artery. NECK CTA: Aorta: No aneurysmal dilatation of the thoracic aorta. The aorta is a four-vessel anatomic variant. The brachiocephalic artery is widely patent. The right subclavian and proximal axillary arteries are widely patent. The left subclavian and visible axillary arteries are widely patent. Right: The right common carotid artery is minimally diseased. There is very minimal calcified and noncalcified plaque in the carotid bulb. No narrowing of the vessel. The right vertebral artery is hypoplastic but visibly patent throughout its extracranial extent. Left: The left common carotid artery is widely patent. There is no disease in the common carotid or internal carotid artery on the left. There is no vessel narrowing. The left vertebral artery is dominant. It is mildly diseased at its origin but otherwise patent. NONVASCULAR: No abnormal parenchymal enhancement in the visible brain. No mass effect on the airway. No cervical lymphadenopathy. No salivary gland abnormality. No significant thyroid disease. The visible upper lungs are clear. There is cervical spondylosis that predominates at C5-6 and C6-7. There is some mild upper thoracic spondylosis. Impression There is no CT evidence for an acute intracranial process. No large vessel occlusion, evidence for vessel dissection, or significant vessel narrowing. Electronically signed by Bryn Vieyra MD 12/30/2019 11:29 AM MRI Brain wo Contrast Narrative TECHNIQUE: MRI of the brain with sequences to include sagittal T1, axial T1 axial diffusion-weighted imaging and ADC maps, axial T2, axial T2 FLAIR, axial susceptibility weighted imaging. CLINICAL INFORMATION: TIA, initial exam; Altered mental status COMPARISON: CT dated 12/30/2019 FINDINGS: Orbits have a normal appearance. Mild mucosal thickening at the ethmoid air cells. Mild bilateral mastoid effusions, left greater than right. No intracranial blood product or abnormal extra-axial fluid collection. Normal appearance of the ventricles and basilar cisterns. Minimal scattered T2/FLAIR hyperintense white matter foci. Normal appearance of the midline developmental anatomy. No evidence of a mass lesion or mass effect. Diffusion weighted imaging and ADC maps show no areas of high or low signal respectively to suggest acute ischemia/infarction. No abnormal susceptibility artifact to suggest hemosiderin deposition. No focal vascular abnormality identified. Impression No acute intracranial abnormality. No acute infarction, acute hemorrhage, or evidence of a mass lesion. Minimal T2/FLAIR hyperintense white matter foci most likely representing chronic microvascular changes. Bilateral mastoid effusions, left greater than right. Electronically signed by Markus Zaragoza MD 12/30/2019 12:59 PM ED COURSE & MEDICAL DECISION MAKING Pertinent Labs & Imaging studies were reviewed along with EMS notes and care home record s if applicable. (See chart for details) Medications and Allergy list reviewed. Nurses note and old records were reviewed 10:47 AM PDT The patient was seen and examined, presents with acute onset of symptoms and N IH SS 0. SO with patient discussed with the patient plans for today last night. Subsequentl y she talk to them early this morning about timeframe and when to get ready for pickup and h is appointment the road to the clinic. That was around 6 AM and she reported that he was ta lking normally interacting with her normally in no acute distress. At the time she arrived to see him approximately 45 minutes before his appointment she noted that he was not able to interact with her effectively. She moved to the vehicle without carrying him. He was able t o follow her commands and with assistance moved to the vehicle. Was placed in the vehicle an d proceeded to come the ED without incidence. A code stroke was called overhead and patient moved to advanced digital imaging. Medical Decision Making as of Jan 03 0653 Sofi Dec 30, 2019 1053 With the on-call stroke neurologist who at this time is believe the patient is out of the window and does not recommend consideration of tPA but the continuation of the evaluatio n for this acute altered sensorium and neuro deficits. 1150 No large vessel occlusion. I personally reviewed the lab results and they have been posted to the chart. Pertinent po sitive and negative findings have been addressed appropriately and I have discussed any sign ificant abnormalities. Patient doing much better with family at bedside. During his evalua tion and during the encounter shortly after arrival he was able to talk to staff answer ques tions and completely back to baseline. His significant other at bedside thinks it may have been due to the significant associated stressors with his anticipated procedure today. He w as scheduled to have a Holter monitor placed. This provided a great deal of anxiety for him . At the end of our encounter our staff was able to coordinate with the cardiology staff to have a Holter monitor placed on the patient prior to disposition. Everything went well. T he patient is significant other bedside are quite happy. I have discussed my clinical impression and treatment plan with the pt. We have specificall y discussed the signs and symptoms that would constitute the need for an immediate return to the ED, the importance of continued outpatient f/u and the importance of compliance with th e d/c instructions. I have answered any questions that the pt has to the best of my ability. Based upon the pt s history, physical exam, ED course, and diagnostic studies, I feel nereida t there is no current emergent medical condition that warrants admission, transfer, or furth er ED treatment at this time. Last Set of Vital Signs: Pulse: 66 Resp: 14 SpO2: 96 %(Simultaneous filing. User may not have seen previous data.) BP: (!) 147/94 Medications diphenhydrAMINE (BENADRYL) injection 25 mg (25 mg Intravenous Given 12/30/19 1054) famotidine (PEPCID) injection 20 mg (20 mg Intravenous Given 12/30/19 1054) iohexol (OMNIPAQUE 350) 350 mg/mL injection 125 mL (125 mLs Intravenous Given 12/30/19 1108) sodium chloride 0.9% (NS) bolus 85 mL (85 mLs Intravenous Push 12/30/19 1108) Vitals: 12/30/19 1500 12/30/19 1515 12/30/19 1530 12/30/19 1545 BP: 169/77 (!) 156/95 156/82 (!) 147/94 Pulse: 78 61 60 66 Resp: TempSrc: SpO2: 97% 97% 99% 96% FINAL IMPRESSION ICD-10-CM ICD-9-CM 1. Speech and language deficits F80.9 784.59 R47.9 315.31 2. Elevated blood pressure reading R03.0 796.2 3. Chronic hyponatremia E87.1 276.1 Follow-up Information MICHELLE Neri. Specialty: Physician Asst - Certified Why: Please call today to arrange follow-up in the next 7-10 days for your ED visit Contact information: [place] [address] [facility]. Specialty: Emergency Medicine Why: As needed Contact information: [place] [address] Discharge Medication List as of 12/30/2019 3:31 PM Jake Earl. This document has been prepared with a voice recognition system. The possibility of "sound alike" heel emery buffer errors, addition and/or deletions may occur. If there is any question p lease contact the author of the document. Procedures Jake Earl MD 01/04/20 0719 inig, Louie Holliday RN - 12/30/2019 10:40 AM PDTPt was found by family to be altered, nonverbal and weak this morning . Last spoke on the phone at 0600. Family picked him up at around 930. Electronically sig ashwin by Louie Silver RN at 12/30/2019 10:51 AM PDTdocumented in this encounter Plan of Treatment +--------+---------+ + + + | Date | Type | Specialty | Care Team | Description | +--------+---------+ + + + | 04/14/ | Office | Cardiology | Spencer Brantley, | | | 2019 | Visit | | MD [place] | | | | | | [place], | | | | | | [place] [address] | | | | | | [phone] | | | | | | | | +--------+---------+ + + + documented as of this encounter Procedures + +--------+ + + + | Procedure Name | Priori | Date/Time | Associated Diagnosis | Comments | | | ty | | | | + +--------+ + + + | MRI BRAIN WO | FARHEEN | 12/30/2019 | | Results for this | | CONTRAST | | 12:33 PM | | procedure are in the | | | | PDT | | results section. | + +--------+ + + + | ECG 12 LEAD | STAT | 12/30/2019 | | Results for this | | | | 11:25 AM | | procedure are in the | | | | PDT | | results section. | + +--------+ + + + | CT ANGIOGRAM HEAD | STAT | 12/30/2019 | | Results for this | | NECK ACUTE STROKE | | 11:09 AM | | procedure are in the | | | | PDT | | results section. | + +--------+ + + + | EXTRA ARANGO TOP TUBE | Routin | 12/30/2019 | | Results for this | | | e | 10:54 AM | | procedure are in the | | | | PDT | | results section. | + +--------+ + + + | EXTRA LAVENDER TOP | Routin | 12/30/2019 | | Results for this | | TUBE | e | 10:54 AM | | procedure are in the | | | | PDT | | results section. | + +--------+ + + + | EXTRA GREEN TOP TUBE | Routin | 12/30/2019 | | Results for this | | | e | 10:54 AM | | procedure are in the | | | | PDT | | results section. | + +--------+ + + + | EXTRA GOLD TOP TUBE | Routin | 12/30/2019 | | Results for this | | | e | 10:54 AM | | procedure are in the | | | | PDT | | results section. | + +--------+ + + + | TROPONIN I | STAT | 12/30/2019 | | Results for this | | | | 10:52 AM | | procedure are in the | | | | PDT | | results section. | + +--------+ + + + | PTT | STAT | 12/30/2019 | | Results for this | | | | 10:52 AM | | procedure are in the | | | | PDT | | results section. | + +--------+ + + + | PROTIME INR | STAT | 12/30/2019 | | Results for this | | | | 10:52 AM | | procedure are in the | | | | PDT | | results section. | + +--------+ + + + | CBC WITH | STAT | 12/30/2019 | | Results for this | | DIFFERENTIAL | | 10:52 AM | | procedure are in the | | | | PDT | | results section. | + +--------+ + + + | COMPREHENSIVE | STAT | 12/30/2019 | | Results for this | | METABOLIC PANEL | | 10:52 AM | | procedure are in the | | | | PDT | | results section. | + +--------+ + + + documented in this encounter Results MRI Brain wo Contrast (12/30/2019 12:33 PM PDT) + + | Specimen | + + | | + + + + + | Impressions | Performed At | + + + | No acute intracranial abnormality. No acute infarction, acute | [facility] | | hemorrhage, or evidence of a mass lesion. Minimal T2/FLAIR | | | hyperintense white matter foci most likely representing chronic | | | microvascular changes. Bilateral mastoid effusions, left greater | | | than right. Electronically signed by Markus Zaragoza MD 12/30/2019 | | | 12:59 PM | | + + + + + + | Narrative | Performed At | + + + | TECHNIQUE: MRI of the brain with sequences to include sagittal | [facility] | | T1, axial T1 axial diffusion-weighted imaging and ADC maps, axial T2, | | | axial T2 FLAIR, axial susceptibility weighted imaging. CLINICAL | | | INFORMATION: TIA, initial exam; Altered mental status COMPARISON: | | | CT dated 12/30/2019 FINDINGS: Orbits have a normal appearance. | | | Mild mucosal thickening at the ethmoid air cells. Mild bilateral | | | mastoid effusions, left greater than right. No intracranial blood | | | product or abnormal extra-axial fluid collection. Normal appearance | | | of the ventricles and basilar cisterns. Minimal scattered T2/FLAIR | | | hyperintense white matter foci. Normal appearance of the midline | | | developmental anatomy. No evidence of a mass lesion or mass effect. | | | Diffusion weighted imaging and ADC maps show no areas of high or | | | low signal respectively to suggest acute ischemia/infarction. No | | | abnormal susceptibility artifact to suggest hemosiderin deposition. | | | No focal vascular abnormality identified. | | + + + + + | Procedure Note | + + | Kaden, Rad Results In - 12/30/2019 1:02 PM PDT | | TECHNIQUE: MRI of the brain with sequences to include sagittal T1, | | axial T1 axial diffusion-weighted imaging and ADC maps, axial T2, | | axial T2 FLAIR, axial susceptibility weighted imaging. | | | | CLINICAL INFORMATION: TIA, initial exam; Altered mental status | | | | COMPARISON: CT dated 12/30/2019 | | | | FINDINGS: | | Orbits have a normal appearance. | | | | Mild mucosal thickening at the ethmoid air cells. Mild bilateral | | mastoid effusions, left greater than right. | | | | No intracranial blood product or abnormal extra-axial fluid | | collection. Normal appearance of the ventricles and basilar cisterns. | | | | Minimal scattered T2/FLAIR hyperintense white matter foci. Normal | | appearance of the midline developmental anatomy. No evidence of a mass | | lesion or mass effect. | | | | Diffusion weighted imaging and ADC maps show no areas of high or low | | signal respectively to suggest acute ischemia/infarction. | | | | No abnormal susceptibility artifact to suggest hemosiderin deposition. | | | | No focal vascular abnormality identified. | | | | | | IMPRESSION: | | | | No acute intracranial abnormality. No acute infarction, acute | | hemorrhage, or evidence of a mass lesion. | | | | Minimal T2/FLAIR hyperintense white matter foci most likely | | representing chronic microvascular changes. | | | | Bilateral mastoid effusions, left greater than right. | | | | Electronically signed by Markus Zaragoza MD 12/30/2019 12:59 PM | + + + +---------+ + + | Performing | Address | City/State/Zipcode | Phone Number | | Organization | | | | + +---------+ + + | [facility] | | | | + +---------+ + + ECG 12 lead (12/30/2019 11:25 AM PDT) + + + + + + | Component | Value | Ref Range | Performed | Pathologist | | | | | At | Signature | + + + + + + | VENTRICULAR | 63 | BPM | [facility] MUSE | | | RATE EKG | | | | | + + + + + + | ATRIAL RATE | 69 | BPM | [facility] | | + + + + + + | P-R | 216 | ms | [facility] | | | INTERVAL | | | | | + + + + + + | QRS | 106 | ms | [facility] | | | DURATION | | | | | + + + + + + | Q-T | 404 | ms | [facility] | | | INTERVAL | | | | | + + + + + + | Q-T | 413 | ms | [facility] | | | INTERVAL | | | | | | (CORRECTED) | | | | | + + + + + + | P WAVE AXIS | 64 | degrees | [facility] | | + + + + + + | QRS AXIS | 5 | degrees | [facility] | | + + + + + + | T AXIS | 36 | degrees | [facility] | | + + + + + + | INTERPRETAT | Sinus rhythm with 1st | | [facility] | | | ION TEXT | degree AV block and | | | | | | single non-conducted P | | | | | | waveAbnormal ECGWhen | | | | | | compared with ECG of | | | | | | 27-DEC-2019 07:57,No | | | | | | significant change was | | | | | | foundConfirmed by | | | | | | PJ WALTERS MD ([id number]) | | | | | | on 12/31/2019 6:25:18 AM | | | | + + [...] | | | + +---------+ + + CT Angiogram Head Neck Acute Stroke (12/30/2019 11:09 AM PDT) + + | Specimen | + + | | + + + + + | Impressions | Performed At | + + + | There is no CT evidence for an acute intracranial process. No | [facility] | | large vessel occlusion, evidence for vessel dissection, or | | | significant vessel narrowing. Electronically signed by Bryn Phillips | | | MD [place] 12/30/2019 11:29 AM | | + + + + + + | Narrative | Performed At | + + + | EXAM: CT ANGIOGRAM HEAD NECK ACUTE STROKE dated 12/30/2019 11:00 AM | [facility] | | HISTORY: Acute Stroke evaluation, concern for arterial | | | COMPARISON: None. TECHNIQUE: Noncontrast imaging is performed | | | through the brain. Post contrast imaging is performed through the | | | head and neck vasculature following the arterial timed injection of [ | | | ] ml of Omnipaque 350. Images are reconstructed. DOSE: DLP | | | 998.21 mGy per centimeter FINDINGS: NONCONTRAST HEAD: | | | Brain: Ventricles, sulci and cisterns are unremarkable for age. No | | | areas of increased attenuation to suggest intracranial hemorrhage. | | | There is no mass, mass effect, or midline shift. There are no | | | abnormal extra-axial fluid or air collections. There is preservation | | | of the arango-white differentiation at this time. There is no | | | significant white matter disease. Scalp/calvarium: The scalp and | | | skull are intact and are unremarkable. Sinuses/orbits/mastoids: | | | The visible mastoid air cells and paranasal sinuses are clear. The | | | globes and retroconal contents are intact and are unremarkable. | | | HEAD CTA: The intracranial right vertebral artery is hypoplastic | | | but patent. The left is widely patent. Posterior inferior cerebellar | | | arteries are patent. There is a left anterior inferior cerebellar | | | artery. There are patent bilateral superior cerebellar arteries. The | | | posterior cerebral arteries bilaterally are near origin. There | | | are bilateral hypoplastic P1 segments. The intracranial internal | | | carotid arteries are patent bilaterally. The middle cerebral arteries | | | are patent bilaterally. The anterior cerebral arteries are patent. | | | There is no definite anterior communicating artery. NECK CTA: | | | Aorta: No aneurysmal dilatation of the thoracic aorta. The aorta is a | | | four-vessel anatomic variant. The brachiocephalic artery is widely | | | patent. The right subclavian and proximal axillary arteries are widely | | | patent. The left subclavian and visible axillary arteries are widely | | | patent. Right: The right common carotid artery is minimally | | | diseased. There is very minimal calcified and noncalcified plaque in | | | the carotid bulb. No narrowing of the vessel. The right vertebral | | | artery is hypoplastic but visibly patent throughout its extracranial | | | extent. Left: The left common carotid artery is widely patent. | | | There is no disease in the common carotid or internal carotid artery | | | on the left. There is no vessel narrowing. The left vertebral artery | | | is dominant. It is mildly diseased at its origin but otherwise | | | patent. NONVASCULAR: No abnormal parenchymal enhancement in | | | the visible brain. No mass effect on the airway. No cervical | | | lymphadenopathy. No salivary gland abnormality. No significant | | | thyroid disease. The visible upper lungs are clear. There is | | | cervical spondylosis that predominates at C5-6 and C6-7. There is | | | some mild upper thoracic spondylosis. | | + + + + + | Procedure Note | + + | Kaden, Rad Results In - 12/30/2019 11:32 AM PDT EXAM: CT ANGIOGRAM HEAD NECK ACUTE | | STROKE dated 12/30/2019 11:00 AMHISTORY: Acute Stroke evaluation, concern for | | arterialCOMPARISON: None.TECHNIQUE: Noncontrast imaging is performed through the brain. | | Postcontrast imaging is performed through the head and neck vasculaturefollowing the | | arterial timed injection of [ ] ml of Omnipaque 350. Images are reconstructed.DOSE: DLP | | 998.21 mGy per centimeterFINDINGS: NONCONTRAST HEAD: Brain: Ventricles, sulci and | | cisterns are unremarkable for age. Noareas of increased attenuation to suggest | | intracranial hemorrhage. There is no mass, mass effect, or midline shift. There are | | noabnormal extra-axial fluid or air collections. There is preservationof the arango-white | | differentiation at this time. There is nosignificant white matter disease. | | Scalp/calvarium: The scalp and skull are intact and are | | unremarkable.Sinuses/orbits/mastoids: The visible mastoid air cells and paranasalsinuses | | are clear. The globes and retroconal contents are intact andare unremarkable.HEAD | | CTA:The intracranial right vertebral artery is hypoplastic but patent. Theleft is widely | | patent. Posterior inferior cerebellar arteries arepatent. There is a left anterior | | inferior cerebellar artery. There arepatent bilateral superior cerebellar arteries. The | | posterior cerebralarteries bilaterally are near origin. There are | | bilateralhypoplastic P1 segments. The intracranial internal carotid arteriesare patent | | bilaterally. The middle cerebral arteries are patentbilaterally. The anterior cerebral | | arteries are patent. There is nodefinite anterior communicating artery.NECK CTA:Aorta: | | No aneurysmal dilatation of the thoracic aorta. The aorta is afour-vessel anatomic | | variant. The brachiocephalic artery is widelypatent. The right subclavian and proximal | | axillary arteries are widelypatent. The left subclavian and visible axillary arteries | | are widelypatent.Right: The right common carotid artery is minimally diseased. There | | isvery minimal calcified and noncalcified plaque in the carotid bulb. Nonarrowing of the | | vessel. The right vertebral artery is hypoplastic butvisibly patent throughout its | | extracranial extent. Left: The left common carotid artery is widely patent. There is | | nodisease in the common carotid or internal carotid artery on the left.There is no | | vessel narrowing. The left vertebral artery is dominant.It is mildly diseased at its | | origin but otherwise patent.NONVASCULAR:No abnormal parenchymal enhancement in the | | visible brain. No masseffect on the airway. No cervical lymphadenopathy. No salivary | | glandabnormality. No significant thyroid disease. The visible upper lungsare clear.There | | is cervical spondylosis that predominates at C5-6 and C6-7.There is some mild upper | | thoracic spondylosis.IMPRESSION: There is no CT evidence for an acute intracranial | | process.No large vessel occlusion, evidence for vessel dissection, orsignificant vessel | | narrowing.Electronically signed by Bryn Vieyra MD 12/30/2019 11:29 AM | |arteries bilaterally are near origin. There are bilateral | |hypoplastic P1 segments. The intracranial internal carotid arteries | |are patent bilaterally. The middle cerebral arteries are patent | |bilaterally. The anterior cerebral arteries are patent. There is no | |definite anterior communicating artery. | | | |NECK CTA: | | | |Aorta: No aneurysmal dilatation of the thoracic aorta. The aorta is a | |four-vessel anatomic variant. The brachiocephalic artery is widely | |patent. The right subclavian and proximal axillary arteries are widely | |patent. The left subclavian and visible axillary arteries are widely | |patent. | | | |Right: The right common carotid artery is minimally diseased. There is | |very minimal calcified and noncalcified plaque in the carotid bulb. No | |narrowing of the vessel. The right vertebral artery is hypoplastic but | |visibly patent throughout its extracranial extent. | | | |Left: The left common carotid artery is widely patent. There is no | |disease in the common carotid or internal carotid artery on the left. | |There is no vessel narrowing. The left vertebral artery is dominant. | |It is mildly diseased at its origin but otherwise patent. | | | |NONVASCULAR: | | | |No abnormal parenchymal enhancement in the visible brain. No mass | |effect on the airway. No cervical lymphadenopathy. No salivary gland | |abnormality. No significant thyroid disease. The visible upper lungs | |are clear. | | | |There is cervical spondylosis that predominates at C5-6 and C6-7. | |There is some mild upper thoracic spondylosis. | | | |IMPRESSION: | | | |There is no CT evidence for an acute intracranial process. | | | |No large vessel occlusion, evidence for vessel dissection, or | |significant vessel narrowing. | | | |Electronically signed by Bryn Vieyra MD 12/30/2019 11:29 AM | + + + +---------+ + + | Performing | Address | City/State/Zipcode | Phone Number | | Organization | | | | + +---------+ + + | [facility] | | | | + +---------+ + + Extra Arango Top Tube (12/30/2019 10:54 AM PDT) + +-------+ + + + | Component | Value | Ref Range | Performed | Pathologist | | | | | At | Signature | + +-------+ + + + | Extra Arango | Done | | [facility] | | | Top Tube | | | [facility] | | | | | | [facility]ICAL | | | | | | CENTER - | | | | | | LABORATORY | | + +-------+ + + + + + | Specimen | + + | Blood | + + + + + + + | Performing | Address | City/State/Zipcode | Phone Number | | Organization | | | | + + + + + | [facility] | [address] | [place] | [phone] | | [facility] | | [address] | | | - LABORATORY | | | | + + + + + Extra Lavender Top Tube (12/30/2019 10:54 AM PDT) + +-------+ + + + | Component | Value | Ref Range | Performed | Pathologist | | | | | At | Signature | + +-------+ + + + | Extra | Done | | [facility] | | | Lavender | | | [facility] | | | Top Tube | | | MEDICAL | | | | | | CENTER - | | | | | | LABORATORY | | + +-------+ + + + + + | Specimen | + + | Blood | + + + + + + + | Performing | Address | City/State/Zipcode | Phone Number | | Organization | | | | + + + + + | [facility] | [address] | [place] | [phone] | | [facility] | | [address] | | | - LABORATORY | | | | + + + + + Extra Green Top Tube (12/30/2019 10:54 AM PDT) + +-------+ + + + | Component | Value | Ref Range | Performed | Pathologist | | | | | At | Signature | + +-------+ + + + | Extra Green | Done | | [facility] | | | Top Tube | | | [facility] | | | | | | MEDICAL | | | | | | CENTER - | | | | | | LABORATORY | | + +-------+ + + + + + | Specimen | + + | Blood | + + + + + + + | Performing | Address | City/State/Zipcode | Phone Number | | Organization | | | | + + + + + | [facility] | [address] | [place], [place] | [phone] | | [facility] | | [address] | | | - LABORATORY | | | | + + + + + Extra Gold Top Tube (12/30/2019 10:54 AM PDT) + +-------+ + + + | Component | Value | Ref Range | Performed | Pathologist | | | | | At | Signature | + +-------+ + + + | Extra Gold | Done | | [facility] | | | Top Tube | | | [facility] | | | | | | MEDICAL | | | | | | CENTER - | | | | | | LABORATORY | | + +-------+ + + + + + | Specimen | + + | Blood | + + + + + + + | Performing | Address | City/State/Zipcode | Phone Number | | Organization | | | | + + + + + | [facility] | [address] | [place] | [phone] | | [facility] | | [address] | | | - LABORATORY | | | | + + + + + Troponin I (12/30/2019 10:52 AM PDT) + + + + + + | Component | Value | Ref Range | Performed | Pathologist | | | | | At | Signature | + + + + + + | Troponin I | 0.02Comment: | <0.06 ng/mL | [facility] | | | | Comment:Reference | | [facility] | | | | Ranges: 0.00-0.06 = | | MEDICAL | | | | NORMAL >0.06 = | | CENTER - | | | | SUSPICIOUS FOR | | LABORATORY | | | | MYOCARDIAL DAMAGE NOTE: | | | | | | Values greater than | | | | | | 0.78 ng/mL have been | | | | | | shown to be strongly | | | | | | associated with acute | | | | | | myocardial infarction. | | | | | | The [employer] | | | | | | Cardiology (ACC) | | | | | | recommends a decision | | | | | | limit of 0.06 ng/mL for | | | | | | this assay. Results | | | | | | greater than 0.06 can | | | | | | reflect a pre-infarct | | | | | | acute coronary syndrome, | | | | | | but can also reflect | | | | | | myocardial necrosis or | | | | | | injury that is not due | | | | | | to coronary artery | | | | | | disease. Some of these | | | | | | causes are sepsis, | | | | | | hypocolemia, atrial | | | | | | fibrillation, heart | | | | | | failure, pulmonary | | | | | | embolism, myocarditis, | | | | | | myocardial contusion, | | | | | | and renal failure. The | | | | | | diagnosis of myocardial | | | | | | infarction should be | | | | | | based on a combination | | | | | | of the patient's | | | | | | clinical presentation | | | | | | and the clinical | | | | | | laboratory test results | | | | | | (especially serial | | | | | | troponin levels). | | | | + + + + + + + + | Specimen | + + | Blood | + + + + + + + | Performing | Address | City/State/Zipcode | Phone Number | | Organization | | | | + + + + + | [facility] | [address] | [place] | [phone] | | [facility] | | [address] | | | - LABORATORY | | | | + + + + + PTT (12/30/2019 10:52 AM PDT) + +-------+ + + + | Component | Value | Ref Range | Performed | Pathologist | | | | | At | Signature | + +-------+ + + + | aPTT | 30 | 22 - 36 seconds | [facility] | | | | | | [facility] | | | | | | MEDICAL | | | | | | CENTER - | | | | | | LABORATORY | | + +-------+ + + + + + | Specimen | + + | Blood | + + + + + + + | Performing | Address | City/State/Zipcode | Phone Number | | Organization | | | | + + + + + | [facility] | [address] | [place] | [phone] | | [facility] | | [address] | | | - LABORATORY | | | | + + + + + Protime INR (12/30/2019 10:52 AM PDT) + + + + + + | Component | Value | Ref Range | Performed | Pathologist | | | | | At | Signature | + + + + + + | Prothrombin | 13.2 | 11.3 - 13.9 | [facility] | | | Time | | seconds | [facility] | | | | | | MEDICAL | | | | | | CENTER - | | | | | | LABORATORY | | + + + + + + | INR | 1.0Comment: Usual Oral | 0.9 - 1.1 | [facility] | | | | Anticoagulation Range: | | [facility] | | | | 2.0 - 3.0High | | MEDICAL | | | | Level Oral | | CENTER - | | | | Anticoagulation Range: | | LABORATORY | | | | 2.5 - 3.5 | | | | + + + + + + + + | Specimen | + + | Blood | + + + + + + + | Performing | Address | City/State/Zipcode | Phone Number | | Organization | | | | + + + + + | [facility] | [address] | [place] | [phone] | | [facility] | | [address] | | | - LABORATORY | | | | + + + + + Comprehensive Metabolic Panel (12/30/2019 10:52 AM PDT) + + + + + + | Component | Value | Ref Range | Performed | Pathologist | | | | | At | Signature | + + + + + + | Na | 128 (L) | 136 - 145 | [facility] | | | | | mmol/L | [facility] | | | | | | MEDICAL | | | | | | CENTER - | | | | | | LABORATORY | | + + + + + + | K | 3.9 | 3.4 - 5.1 | [facility] | | | | | mmol/L | [facility] | | | | | | MEDICAL | | | | | | CENTER - | | | | | | LABORATORY | | + + + + + + | Cl | 92 (L) | 98 - 107 mmol/L | [facility] | | | | | | [facility] | | | | | | MEDICAL | | | | | | CENTER - | | | | | | LABORATORY | | + + + + + + | CO2 | 25 | 20 - 31 mmol/L | [facility] | | | | | | [facility] | | | | | | MEDICAL | | | | | | CENTER - | | | | | | LABORATORY | | + + + + + + | Anion Gap | 11 | 3 - 16 mmol/L | [facility] | | | | | | [facility] | | | | | | [facility] | | | | | | CENTER - | | | | | | LABORATORY | | + + + + + + | Glucose | 113 (H) | 60 - 106 mg/dL | [facility] | | | | | | [facility] | | | | | | [facility] | | | | | | CENTER - | | | | | | LABORATORY | | + + + + + + | BUN | 15 | 9 - 23 mg/dL | [facility] | | | | | | [facility] | | | | | | MEDICAL | | | | | | CENTER - | | | | | | LABORATORY | | + + + + + + | Creatinine | 0.79 | 0.70 - 1.30 | [facility] | | | | | mg/dL | [facility] | | | | | | MEDICAL | | | | | | CENTER - | | | | | | LABORATORY | | + + + + + + | eGFR if not | >60Comment: GLOMERULAR | >=60 | [facility] | | | | FILTRATION | mL/min/1.73m2 | [facility] | | | ZAMBIAN | RATE,ESTIMATED | | MEDICAL | | | | mL/min/1.85y0Ieoa than | | CENTER - | | | | 60 Chronic kidney | | LABORATORY | | | | disease,if found over a | | | | | | 3-month period.Less than | | | | | | 15 Kidney failureFor | | | | | | | | | | | | Americans,multiply the | | | | | | calculated GFR by 1.21. | | | | | | | | | | + + + + + + | Calcium | 9.3 | 8.7 - 10.4 | [facility] | | | | | mg/dL | [facility] | | | | | | MEDICAL | | | | | | CENTER - | | | | | | LABORATORY | | + + + + + + | Albumin | 4.7 | 3.2 - 4.8 g/dL | [facility] | | | | | | [facility] | | | | | | MEDICAL | | | | | | CENTER - | | | | | | LABORATORY | | + + + + + + | Bilirubin | 1.6 (H) | 0.3 - 1.2 mg/dL | [facility] | | | Total | | | [facility] | | | | | | MEDICAL | | | | | | CENTER - | | | | | | LABORATORY | | + + + + + + | Total | 6.9 | 5.7 - 8.2 g/dL | [facility] | | | Protein | | | [facility] | | | | | | MEDICAL | | | | | | CENTER - | | | | | | LABORATORY | | + + + + + + | AST | 48 (H) | 0 - 34 U/L | [facility] | | | | | | [facility] | | | | | | [facility]ICAL | | | | | | CENTER - | | | | | | LABORATORY | | + + + + + + | ALT | 21 | 10 - 49 U/L | [facility] | | | | | | [facility] | | | | | | MEDICAL | | | | | | CENTER - | | | | | | LABORATORY | | + + + + + + | Alkaline | 55 | 46 - 116 U/L | [facility] | | | Phosphatase | | | [facility] | | | | | | MEDICAL | | | | | | CENTER - | | | | | | LABORATORY | | + + + + + + | Globulin | 2.2 | 2.1 - 3.8 g/dL | [facility] | | | | | | [facility] | | | | | | [facility] | | | | | | CENTER - | | | | | | LABORATORY | | + + + + + + | Albumin/Miriam | 2.1 (H) | 0.8 - 1.9 | [facility] | | | bulin Ratio | | | [facility] | | | | | | MEDICAL | | | | | | CENTER - | | | | | | LABORATORY | | + + + + + + | BUN/Creatin | 19.0 | | [facility] | | | ine Ratio | | | [facility] | | | | | | MEDICAL | | | | | | CENTER - | | | | | | LABORATORY | | + + + + + + + + | Specimen | + + | Blood | + + + + + + + | Performing | Address | City/State/Zipcode | Phone Number | | Organization | | | | + + + + + | [facility] | [address] | [place] | [phone] | | [facility] | | [address] | | | - LABORATORY | | | | + + + + + CBC with Differential (12/30/2019 10:52 AM PDT) + + + + + + | Component | Value | Ref Range | Performed | Pathologist | | | | | At | Signature | + + + + + + | WBC | 7.8 | 4.0 - 11.0 K/uL | [facility] | | | | | | [facility] | | | | | | [facility] | | | | | | CENTER - | | | | | | LABORATORY | | + + + + + + | RBC | 4.04 (L) | 4.30 - 5.70 | [facility] | | | | | M/uL | [facility] | | | | | | MEDICAL | | | | | | CENTER - | | | | | | LABORATORY | | + + + + + + | Hemoglobin | 12.9 (L) | 13.5 - 18.0 | [facility] | | | | | g/dL | [facility] | | | | | | [facility]ICAL | | | | | | CENTER - | | | | | | LABORATORY | | + + + + + + | Hematocrit | 35.7 (L) | 40.0 - 51.0 % | [facility] | | | | | | [facility] | | | | | | [facility] | | | | | | CENTER - | | | | | | LABORATORY | | + + + + + + | MCV | 88.4 | 83.0 - 101.0 fL | [facility] | | | | | | [facility] | | | | | | [facility] | | | | | | CENTER - | | | | | | LABORATORY | | + + + + + + | MCH | 31.9 | 28.0 - 35.0 pg | [facility] | | | | | | [facility] | | | | | | [facility] | | | | | | CENTER - | | | | | | LABORATORY | | + + + + + + | MCHC | 36.1 (H) | 32.0 - 36.0 | [facility] | | | | | g/dL | [facility] | | | | | | [facility] | | | | | | CENTER - | | | | | | LABORATORY | | + + + + + + | RDW-CV | 12.2 | <15.0 % | [facility] | | | | | | [facility] | | | | | | MEDICAL | | | | | | CENTER - | | | | | | LABORATORY | | + + + + + + | RDW-SD | 39.4 | 35.1 - 46.3 fL | [facility] | | | | | | [facility] | | | | | | [facility] | | | | | | C[facility] - | | | | | | LABORATORY | | + + + + + + | Platelet | 269 | 140 - 440 K/uL | [facility] | | | Count | | | [facility] | | | | | | MED[facility] | | | | | | CENTER - | | | | | | LABORATORY | | + + + + + + | MPV | 10.2 | 6.5 - 12.4 fL | [facility] | | | | | | [facility] | | | | | | [facility] | | | | | | CENTER - | | | | | | LABORATORY | | + + + + + + | % | 69.4 | 45.0 - 82.0 % | [facility] | | | Neutrophils | | | [facility] | | | | | | MEDICAL | | | | | | CENTER - | | | | | | LABORATORY | | + + + + + + | % | 19.0 (L) | 20.0 - 45.0 % | [facility] | | | Lymphocytes | | | [facility] | | | | | | [facility]ICAL | | | | | | CENTER - | | | | | | LABORATORY | | + + + + + + | % Monocytes | 10.0 | 4.0 - 12.0 % | [facility] | | | | | | [facility] | | | | | | [facility] | | | | | | CENTER - | | | | | | LABORATORY | | + + + + + + | % | 0.3 | 0.0 - 5.0 % | [facility] | | | Eosinophils | | | [facility] | | | | | | MEDICAL | | | | | | CENTER - | | | | | | LABORATORY | | + + + + + + | % Basophils | 1.0 | 0.0 - 1.0 % | [facility] | | | | | | [facility] | | | | | | [facility] | | | | | | CENTER - | | | | | | LABORATORY | | + + + + + + | % Immature | 0.3 | 0.0 - 0.4 % | [facility] | | | Granulocyte | | | [facility] | | | s | | | MEDICAL | | | | | | CENTER - | | | | | | LABORATORY | | + + + + + + | Absolute | 5.44 | 1.80 - 8.50 | [facility] | | | Neutrophils | | K/uL | [facility] | | | | | | MEDICAL | | | | | | CENTER - | | | | | | LABORATORY | | + + + + + + | Absolute | 1.49 | 0.60 - 3.20 | [facility] | | | Lymphocytes | | K/uL | [facility] | | | | | | MEDICAL | | | | | | CENTER - | | | | | | LABORATORY | | + + + + + + | Absolute | 0.78 | 0.00 - 1.00 | [facility] | | | Monocytes | | K/uL | [facility] | | | | | | MEDICAL | | | | | | CENTER - | | | | | | LABORATORY | | + + + + + + | Absolute | 0.02 | 0.00 - 0.40 | [facility] | | | Eosinophils | | K/uL | [facility] | | | | | | MEDICAL | | | | | | CENTER - | | | | | | LABORATORY | | + + + + + + | Absolute | 0.08 | 0.00 - 0.10 | [facility] | | | Basophils | | K/uL | [facility] | | | | | | MEDICAL | | | | | | CENTER - | | | | | | LABORATORY | | + + + + + + | Absolute | 0.02 | 0.00 - 0.03 | [facility] | | | Immature | | K/uL | [facility] | | | Granulocyte | | | MEDICAL | | | s | | | CENTER - | | | | | | LABORATORY | | + + + + + + | % nRBC | 0 | 0 - 2 per 100 | [facility] | | | | | WBCs | [facility] | | | | | | [facility] | | | | | | CENTER - | | | | | | LABORATORY | | + + + + + + | Absolute | 0.00 | 0.00 - 0.01 | [facility] | | | nRBC | | K/uL | [facility] | | | | | | [facility] | | | | | | CENTER - | | | | | | LABORATORY | | + + + + + + + + | Specimen | + + | Blood | + + + + + + + | Performing | Address | City/State/Zipcode | Phone Number | | Organization | | | | + + + + + | [facility] | 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 | + + | Elevated blood pressure reading Elevated blood pressure reading without diagnosis of | | hypertension | + + | Chronic hyponatremia Hyposmolality and/or hyponatremia | + + documented in this encounter Administered Medications + +--------+ +-------+------+------+ | Medication Order | MAR | Action | Dose | Rate | Site | | | Action | Date | | | | + +--------+ +-------+------+------+ | diphenhydrAMINE (BENADRYL) | Given | 12/30/19 | 25 mg | | | | injection 25 mg 25 mg, | | 20 10:54 | | | | | Intravenous, ONCE, [facility] 12/30/19 at | | AM PDT | | | | | 1050, For 1 dose | | | | | | + +--------+ +-------+------+------+ +---+---+ | | | +---+---+ + +-------+ +-------+---+---+ | famotidine (PEPCID) injection | Given | 12/30/19 | 20 mg | | | | 20 mg 20 mg, Intravenous, ONCE, | | 20 10:54 | | | | | Sofi 12/30/19 at 1050, For 1 dose, | | AM PDT | | | | | Dilute 2 mL of famotidine with 8 | | | | | | | mL of normal saline to a final | | | | | | | concentration of 2 mg/mL. | | | | | | | Administer ordered dose over a | | | | | | | period of at least 2 minutes., | | | | | | + +-------+ +-------+---+---+ +---+---+ | | | +---+---+ + +-------+ +---------+---+---+ | iohexol (OMNIPAQUE 350) 350 | Given | 12/30/19 | 125 mLs | | | | mg/mL injection 125 mL 125 mL, | | 20 11:08 | | | | | Intravenous, ONCE PRN, Other, for | | AM PDT | | | | | CT contrast study, Starting Sofi | | | | | | | 12/30/19 at 1109, For 1 dose, | | | | | | | Radiology | | | | | | + +-------+ +---------+---+---+ + +---+ | | | + +---+ | niCARdipine in saline (CARDENE) | | | 0.2 mg/mL infusion 5-15 mg/hr | | | (25-75 mL/hr), at 25-75 mL/hr, | | | Intravenous, TITRATED, Starting | | | Sofi 12/30/19 at 1050, Second line | | | antihypertensive therapy to | | | control blood pressure if blood | | | pressure is not attained after 2 | | | doses of labetalol and 20 minutes | | | have passed, or if labetalol is | | | contraindicated. NOT TO EXCEED 15 | | | mg IN 1 HOUR. Protect from | | | light., Titration Instruction: | | | See below, Goal: Other, Other | | | goal: SBP less than 220 and DBP | | | less than 120., Initial dose: 5 | | | mg/hr, Increase rate by: 2.5 | | | mg/hr every 5 minutes., Decrease | | | rate by: 2.5 mg/hr every 5 | | | minutes., *: Titrate drug per | | | order as tolerated. Titration may | | | vary based on the patient | | | | | | s critical condition., Call | | | provider if: If goal blood | | | pressure is not controlled with | | | maximum dose. | | + +---+ | | | + +---+ + +------+ +--------+-------+---+ | sodium chloride 0.9% (NS) bolus | Push | 12/30/19 | 85 mLs | 5100 | | | 85 mL 85 mL, Intravenous, | | 20 11:08 | | mL/hr | | | Administer over 1 Minutes, ONCE | | AM PDT | | | | | PRN, for imaging CT study, | | | | | | | Starting Sofi 12/30/19 at 1109, For | | | | | | | 1 dose, Radiology | | | | | | + +------+ +--------+-------+---+ +---+---+ | | | +---+---+ documented in this encounter
--- OUTSIDE RECORDS SUMMARY | ~2020-01-04 | XMS | Encounter Summary ---
Demographics + + + | Address | [address] | | | [place] [address] | + + + | Home Phone | | + + + | Preferred Language | Unknown | + + + | Marital Status | | + + + | Latter-Day Affiliation | Unknown | + + + | Race | Unknown | + + + | Ethnic Group | Unknown | + + + Author + + + | Author | [facility] | | | and [place] | + + + | Organization | [facility] | | | [...] Team Providers + +------+ + | Care Community Music Therapist Name | Role | Phone | + +------+ + | Neida Noyola | PCP | | + +------+ + Encounter Details +--------+ + + + + | Date | Type | Department | Care Team | Description | +--------+ + + + + | 12/29/ | Imaging | [facility] | Provider, | | | 2019 | Exam | [facility] | MD [address] | | | | | IMAGING [address] | [address] | | | | | [address] [place] | [place] [address] | | | | | [place] [address] | | | | | | [phone] | | | +--------+ + + + [...] | 2019 | Visit | | MD [address] | | | | | | [place], | | | | | | [place] [address] | | | | | | [phone] | | | | | | | | +--------+---------+ + + + documented as of this encounter Procedures + +--------+ + + + | Procedure Name | Priori | Date/Time | Associated Diagnosis | Comments | | | ty | | | | + +--------+ + + + | MRI BRAIN W WO | Routin | 11/25/2010 | | Results for this | | CONTRAST | e | 12:00 AM | | procedure are in the | | | | PDT | | results section. | + +--------+ + + + documented in this encounter Results MRI Brain w wo Contrast (11/25/2010 12:00 AM PDT) + + | Specimen | + + | | + + + + + | Narrative | Performed At | + + + | External films for comparison only | [facility] | | | | | No results will be in the chart. | | + + + + +---------+ + + | Performing | Address | City/State/Zipcode | Phone Number | | Organization | | | | + +---------+ + + | [facility] | | | | + +---------+ + + documented in this encounter Visit Diagnoses Not on filedocumented in this encounter"
--- OUTSIDE RECORDS SUMMARY | ~2020-01-04 | XMS | Clinical Summary ---
Demographics + + + | Address | [address] | | | [place] [address] | + + + | Home Phone | | + + + | Preferred Language | Unknown | + + + | Marital Status | | + + + | Mosque Affiliation | Unknown | + + + | Race | Unknown | + + + | Ethnic Group | Unknown | + + + Author + + + | Author | [facility] | | | and [place] | + + + | Organization | [facility] | | [...] Team Providers + +------+ + | Care Manager Mechanical Maintenance Name | Role | Phone | + +------+ + | Neida Noyola | PCP | | + +------+ + Allergies + + + +--------+ + | Active Allergy | Reactions | Severity | Noted | Comments | | | | | Date | | + + + +--------+ + | Iodine | Rash | Medium | | | + + + +--------+ + Medications + + + +---------+------+------+-------+ | Medication | Sig | Dispensed | Refills | Star | End | Statu | | | | | | t | Date | s | | | | | | Date | | | + + + +---------+------+------+-------+ | Multiple | Take 1 tablet by | | 0 | | | Activ | | Vitamins-Minerals | mouth Daily. | | | | | e | | (MENS 50+ MULTI | | | | | | | | VITAMIN/MIN) TABS | | | | | | | + + + +---------+------+------+-------+ | ascorbic acid | Take 500 mg by mouth | | 0 | | | Activ | | (VITAMIN C) 500 mg | Daily. | | | | | e | | tablet | | | | | | | + + + +---------+------+------+-------+ | lisinopril | Take 10 mg by mouth | | 0 | | | Activ | | (PRINIVIL, ZESTRIL) | Daily | | | | | e | | 10 mg tablet | | | | | | | + + + +---------+------+------+-------+ | magnesium oxide | Take 400 mg by mouth | | 0 | | | Activ | | (MAG-OX) 400 mg | Daily | | | | | e | | tablet | | | | | | | + + + +---------+------+------+-------+ | selenium 50 MCG | Take 50 mcg by mouth | | 0 | | | Activ | | TABS | Daily | | | | | e | + + + +---------+------+------+-------+ | thyroid | Take 65 mg by mouth | | 0 | | | Activ | | (NATURE-THROID, | 2 times daily | | | | | e | | WESTHROID) 65 MG | | | | | | | | tablet | | | | | | | + + + +---------+------+------+-------+ | levothyroxine | Take 50 mcg by mouth | | 0 | | 06/2 | Disco | | (SYNTHROID) 50 mcg | every morning | | | | 2/20 | ntinu | | tablet | (before breakfast). | | | | 20 | ed | | | | | | | | (Parad[place] | | | | | | | | ent | | | | | | | | Not | | | | | | | | Takin | | | | | | | | g) | + + + +---------+------+------+-------+ Active Problems + + + | Problem | Noted Date | + + + | Hypothyroidism | 08/27/2018 | + + + | CHANGE IN BOWELS | | + + + | Hyponatremia | | + + + | Second degree AV block | | + + + + + | Overview: Echocardiogram 12/21/2019 shows normal left | | ventricular cavity size, left ventricular wall thickness at the | | upper limites of normal, ejection fraction is visually estimated | | at 65%, no regional wall motion abnormalities, doppler flow | | profile suggests an abnormal grade I diastolic filling patter. | | Allie Knight MD. | + + + +---+ | Essential hypertension | | + +---+ Encounters +--------+ + + + + | Date | Type | Specialty | Care Team | Description | +--------+ + + + + | 12/29/ | Emergency | Emergency Medicine | Jake Earl, | Speech and language | | 2019 | | | MD | deficits (Primary | | | | | | Dx); Elevated blood | | | | | | pressure reading; | | | | | | Chronic hyponatremia | +--------+ + + + + | 12/29/ | Hospital | Radiology | Spencer Brantley, | Second degree AV | | 2019 | Encounter | | MD | block | +--------+ + + + + | 12/26/ | Office | Cardiology | Spencer Brantley, | Second degree AV | | 2019 | Visit | | MD | block (Primary Dx) | +--------+ + + + + | 12/26/ | Abstract | Cardiology | Provider, | Hyponatremia; Second | | 2019 | | | Historical, MD | degree AV block; | | | | | | Essential | | | | | | hypertension | +--------+ + + + + from Last 3 Months Family History + + +------+ + | Medical History | Relation | Name | Comments | + + +------+ + | Cancer | Father | | testicular | + + +------+ + | Congenital heart | Mother | | | | disease | | | | + + +------+ + + +------+ + + | Relation | Name | Status | Comments | + +------+ + + | Father | | | | + +------+ + + | Mother | | | | + +------+ + + | Sister | | | | | | | (Age | | | | | 20 years | | | | | ) | | + +------+ + + Social History + +-------+ +--------+------+ [...] on file | | + + + Last Filed Vital Signs + + + + + | Vital Sign | Reading | Time Taken | Comments | + + + + + | Blood Pressure | 147/94 | 12/30/2019 3:45 PM | | | | | PDT | | + + + + + | Pulse | 66 | 12/30/2019 3:45 PM | | | | | PDT | | + + + + + | Temperature | 36.9 C (98.5 F) | 03/12/2018 11:38 AM | | | | | PDT | | + + + + + | Respiratory Rate | 14 | 12/30/2019 12:15 PM | | | | | PDT | | + + + + + | Oxygen Saturation | 96% | 12/30/2019 3:45 PM | Simultaneous filing. | | | | PDT | User may not have | | | | | seen previous data. | + + + + + | [...] | | + + + + + Plan of Treatment +--------+---------+ + + + | Date | Type | Specialty | Care Team | Description | +--------+---------+ + + + | 04/14/ | Office | Cardiology | DeshawncherrymarthaFrankojamila, | | | 2019 | Visit | | MD [address] | | | | | | [place], | | | | | | [place] [address] | | | | | | [phone] | | | | | | | | +--------+---------+ + + + + + + + + | Health Maintenance | Due Date | Last | Comments | | | | Done | | + + + + + | Hepatitis C | | | | | Screening | 1 | | | + + + + + | Vaccine: | | | | | Dtap/Tdap/Td (1 - | 0 | | | | Tdap) | | | | + + + + + | Colorectal Cancer | | | | | Screening | 1 | | | | (Colonoscopy) | | | | + + + + + | Vaccine: Zoster (1 | | | | | of 2) | 1 | | | + + + + + | Vaccine: | | | | | Pneumococcal 65+ (1 | 6 | | | | of 1 - PPSV23) | | | | + + + + + | Adult Annual | | | | | Wellness Visit | 8 | | | + + + + + | Vaccine: Influenza | | 04/27/20 | | | (Season Ended) | 0 | 13 | | + + + + + Procedures + +--------+ + + + | [...] section. | + +--------+ + + + from Last 3 Months Results MRI Brain wo Contrast (12/30/2019 12:33 [...] + ECG 12 lead (12/30/2019 11:25 AM PDT)Only the most recent of 3 results within the time elvie od is included. + + + + + + | [...] | | | | PJ WALTERS MD ([id number]) | | | | | | on [...] + +-------+ + + + | Extra Aranog | Done | | [facility] | | | Top Tube | | | [facility] | | | | | | [...] [address] | [place] | [phone] | | [facility] | | [address] | | | - LABORATORY | | [...] + | [facility] | [address] | [place] | [phone] | | [facility] | | [address] | | | - LABORATORY | | [...] | Top Tube | | | [facility] | | [...] | + + + + + | [facility] | [address] | [place] | [phone] | | [facility] | | [address] | | | - LABORATORY | | [...] | Top Tube | | | [facility] | | | | | | MEDICAL [...] + + + + + | [facility]. | [address] | [place] | [phone] | | [facility] | | [address] | | | - LABORATORY | | [...] | | | | | | [employer] | | | | | [...] ST. | [address] | [place] | [phone] | | [facility] | | [address] | | | - LABORATORY | | | | + + + + + PTT (12/30/2019 10:52 AM PDT) + +-------+ + + + | Component | Value | Ref Range | Performed | Pathologist | | | | | At | Signature | + +-------+ + + + | aPTT | 30 | 22 - 36 seconds | [facility] | | | | | | ST. [...] [address] | [place] | [phone] | | [facility] | | [address] | | | - LABORATORY | | [...] | | Time | | seconds | [facility] | | | | [...] + | [facility] | [address] | [place], [place] | [phone] | | [facility] | | [address] | | | - LABORATORY | | | | + + + + + CBC with Differential (12/30/2019 10:52 AM PDT)Only the most recent of 2 results within the time period is included. + + + + + + | Component | Value | Ref Range | Performed | Pathologist | | | | | At | Signature | + + + + + + | WBC | 7.8 | 4.0 - 11.0 K/uL | [facility] | | | | | | [facility] | | | | | | [...] | | | Granulocyte | | | [facility] | | | s | | | MEDICAL | | | | | | CENTER - | | | | | | LABORATORY | | + + + + + + | Absolute | 5.44 | 1.80 - 8.50 | [facility] | | | Neutrophils | | K/uL | [facility] | | | | | | MEDICAL | | | | | | CENTER - | | | | | | LABORATORY | | + + + + + + | Absolute | 1.49 | 0.60 - 3.20 | [facility] | | | Lymphocytes | | K/uL | [facility] | | | | | | MEDICAL | | | | | | CENTER - | | | | | | LABORATORY | | + + + + + + | Absolute | 0.78 | 0.00 - 1.00 | [facility] | | | Monocytes | | K/uL | [facility] | | | | | | MEDICAL | | | | | | CENTER - | | | | | | LABORATORY | | + + + + + + | Absolute | 0.02 | 0.00 - 0.40 | [facility] | | | Eosinophils | | K/uL | [facility] | | | | | | MEDICAL | | | | | | CENTER - | | | | | | LABORATORY | | + + + + + + | Absolute | 0.08 | 0.00 - 0.10 | [facility] | | | Basophils | | K/uL | [facility] | | | | | | MEDICAL | | | | | | CENTER - | | | | | | LABORATORY | | + + + + + + | Absolute | 0.02 | 0.00 - 0.03 | [facility] | | | Immature | | K/uL | [facility] | | | Granulocyte | | [...] + | [facility] | [address] | [place] | [phone] | | [facility] | | [address] | | | - LABORATORY | | | | + + + + + Comprehensive Metabolic Panel (12/30/2019 10:52 AM PDT)Only the most recent of 2 results wi thin the time period is included. + + + + + + | [...] 15 | 9 - 23 mg/dL | [facility] | | | | | | [facility] | | | | | | MEDICAL | | | | | | CENTER - | | | | | | LABORATORY | | + + + + + + | Creatinine | 0.79 | 0.70 - 1.30 | [facility] | | | | | mg/dL | [facility] | | | | | | MEDICAL | | | | | | CENTER - | | | | | | LABORATORY | | + + + + + + | eGFR if not | >60Comment: GLOMERULAR | >=60 | [facility] | | | | FILTRATION | mL/min/1.73m2 | [facility] | | | FIJIAN | RATE,ESTIMATED | | MEDICAL | | | | mL/min/1.07m6Ljsc than | | CENTER - | | [...] | | | | | mg/dL | [facility] | | | | | | MEDICAL | | | | | | CENTER - | | | | | | LABORATORY | | + + + + + + | Albumin | 4.7 | 3.2 - 4.8 g/dL | [facility] | | | | | | [facility] | | | | | | MEDICAL | | | | | | CENTER - | | | | | | LABORATORY | | + + + + + + | Bilirubin | 1.6 (H) | 0.3 - 1.2 mg/dL | [facility] | | | Total | | | [facility] | | [...] | | | Phosphatase | | | [facility] | | | | | | MEDICAL | | | | | | CENTER - | | | | | | LABORATORY | | + + + + + + | Globulin | 2.2 | 2.1 - 3.8 g/dL | [facility] | | | | | | [facility] | | | | | | [...] | | ine Ratio | | | [facility] | | [...] [address] | [place] | [phone] | | [facility] | | [address] | | | - LABORATORY | | | | + + + + + External Lab: [facility] (12/20/2019) + +-------+ + + + | [...] | + +---------+ + + External Lab: [facility] (12/20/2019) + +-------+ + + + | [...] Resulting Agency Comment | + + | [facility] | + + + +---------+ + [...] Resulting Agency Comment | + + | [facility] | + + + +---------+ + [...] Resulting Agency Comment | + + | [facility] | + + + +---------+ + + | Performing | Address | City/State/Zipcode | Phone Number | | Organization | | | | + +---------+ + + | EXTERNAL [facility] | | | | + +---------+ + + from Last 3 Months Insurance + +--------+ +--------+ +---------+--------+ | Payer | Benefi | Subscriber | Effect | Phone | Address | Type | | | t Plan | ID | joanne | | | | | | / | | Dates | | | | | | Group | | | | | | + +--------+ +--------+ +---------+--------+ | MEDICARE | MEDICA | [id number] | | [phone] | | Medica | | | RE | | 016-Pr | 5 | | re | | | PART A | | esent | | | | | | AND B | | | | | | + +--------+ +--------+ +---------+--------+ + +--------+ +--------+ + + | Guarantor Name | Accoun | Relation to | Date | Phone | Billing Address | | | t Type | Patient | of | | | | | | | | | | + +--------+ +--------+ + + | Isidro Viera | Person | Self [birth year] | [address] | | | al/Fam | | 1949 | [phone] | [place] [address] | | | [place] | | | 1 (Home) | | + +--------+ +--------+ + + Advance Directives + + + + + | Type | Date Recorded | Patient | Explanation | | | | Health Service Worker | | + + + + + | Power of | | | | | Meat Cutting Teacher | | | | + + + + + | Advance | 12/30/2019 4:13 | | | | Directive | PM | | | + + + + +
--- OUTSIDE RECORDS SUMMARY | ~2020-01-04 | XMS | Encounter Summary ---
Demographics + + + | Address | [address] | | | [place] [address] | + + + | Home Phone | | + + + | Preferred Language | Unknown | + + + | Marital Status | | + + + | Judaism Affiliation | Unknown | + + + | Race | Unknown | + + + | Ethnic Group | Unknown | + + + Author + + + | Author | [facility] | | | and [place] | + + + | Organization | [facility] | | | [...] Team Providers + +------+ + | Care Financial Operations Consultant Name | Role | Phone | + +------+ + PCP | Unavailable | + +------+ + Encounter Details +--------+ + + + + | Date | Type | Department | Care Team | Description | +--------+ + + + + | 03/18/ | Abstract | [facility] | DATA MIGRATION ANUJ | | | 2011 | | Conversion Location | SR | | | | | [address] [facility] | | | | | | [place], [place] | | | | | | [address] | | | | | | [phone] | | | +--------+ + + + [...] + | Blood Pressure | 140/80 | 10/30/2009 12:00 AM | | | | | PDT | | + + + + + | Pulse | - | - | | + + + + + | Temperature | - | - | | + + + + + | Respiratory Rate | - | - | | + + + + + | Oxygen Saturation | - | - | | + + + + + | Inhaled Oxygen | - | - | | | Concentration | | | | + + + + + | Weight | 80.3 kg (177 lb) | 10/30/2009 12:00 AM | | | | | PDT | | + + + + + | Height | 176.5 cm (5' 9.5") | 10/30/2009 12:00 AM | | | | | PDT | | + + + + + | Body Mass Index | 25.76 | 10/30/2009 12:00 AM | | | | | PDT | | + + + + + documented in this encounter Plan of Treatment +--------+---------+ + + + | Date | Type | Specialty | Care Team | Description | +--------+---------+ + + + | 04/14/ | Office | Cardiology | Spencer Brantley, | | | 2019 | Visit | | [address] | | | | | | [place], | | | | | | [place] [address] | | | | | | [phone] | | | | | | | | +--------+---------+ + + + documented as of this encounter Visit Diagnoses Not on filedocumented in this encounter
--- OUTSIDE RECORDS SUMMARY | ~2020-01-04 | XMS | Encounter Summary ---
Demographics + + + | Address | [address] | | | [place] [address] | + + + | Home Phone | | + + + | Preferred Language | Unknown | + + + | Marital Status | | + + + | Jehovah'S Witness Affiliation | Unknown | + + + | Race | Unknown | + + + | Ethnic Group | Unknown | + + + Author + + + | Author | [facility] | | | and [place] | + + + | Organization | [facility] | | [...] Team Providers + +------+ + | Care Optoelectronic Technician Name | Role | Phone | + +------+ + | No, Physician | PCP | Unavailable | + +------+ + Reason for Visit +--------+ + | Reason | Comments | +--------+ + | Cough | room 6/ congestion, head cold, sore throat x 2wk | +--------+ + Encounter Details +--------+---------+ + + + | Date | Type | Department | Care Team | Description | +--------+---------+ + + + | 03/12/ | Office | [facility] | | Canceled | | 2018 | Visit | CARE [address] | | (Appointment Not | | | | [place] | | Needed) | | | | [address] | | | | | | [phone] | | | +--------+---------+ + + + [...] + + + | Blood Pressure | 133/98 | 03/12/2018 11:01 AM | | | | | PDT | | + + + + + | Pulse | 72 | 03/12/2018 11:01 AM | | | | | PDT | | + + + + + | Temperature | 36.3 C (97.3 F) | 03/12/2018 11:01 AM | | | | | PDT | | + + + + + | Respiratory Rate | 16 | 03/12/2018 11:01 AM | | | | | PDT | | + + + + + | Oxygen Saturation | 97% | 03/12/2018 11:01 AM | | | | | PDT | | + + + + + | Inhaled Oxygen | - | - | | | Concentration | | | | + + + + + | Weight | 88.4 kg (194 lb 14.2 | 03/12/2018 11:01 AM | | | | oz) | PDT | | + + + + + | Height | 176.5 cm (5' 9.5") | 03/12/2018 11:01 AM | | | | | PDT | | + + + + + | Body Mass Index | 28.37 | 03/12/2018 11:01 AM | | | | | PDT [...] [place], | | | | | | [place] [address] | | | | | | [phone] | | | | | | | | +--------+---------+ + + + documented as of this encounter Visit Diagnoses Not on filedocumented in this encounter
--- OUTSIDE RECORDS SUMMARY | ~2020-01-04 | XMS | Encounter Summary ---
Demographics + + + | Address | [address] | | | [place] [address] | + + + | Home Phone | | + + + | Preferred Language | Unknown | + + + | Marital Status | | + + + | Mu-Ism Affiliation | Unknown | + + + | Race | Unknown | + + + | Ethnic Group | Unknown | + + + Author + + + | Author | [facility] | | | and [place] | + + + | Organization | [facility] | | [...] Team Providers + +------+ + | Care Fulfillment Specialist Name | Role | Phone | + +------+ + | No, Physician | PCP | Unavailable | + +------+ + Reason for Visit +---------+--------+ + | Reason | Onset | Comments | | | Date | | +---------+--------+ + | Results | 03/14/ | | | | 2018 | | +---------+--------+ + Encounter Details +--------+ + + + + | Date | Type | Department | Care Team | Description | +--------+ + + + + | 03/14/ | Telephone | [facility] | Candida Bueno | Results | | 2018 | | [facility] [address] | [address] | | | | | [address] | [place] [address] | | | | | [address] [facility] | [phone] | | | | | [place] [address] | | | | | | [phone] | | | +--------+ + + + [...] + + documented as of this encounter Miscellaneous Notes Telephone Encounter - Di Aguirre, Ink Blender - 03/15/2018 9:07 AM PDTSpoke wit h patient-relayed results, patient verbalized understanding and had no questions.Electronica lly signed by Di Aguirre Ink Blender at 03/15/2018 9:07 AM PDTTelephone Michelle Bird CMA - 03/14/2018 7:30 PM PDTAttempted to contact patient but left a m essage to please return our call. ----- Message from COY Jaime sent at 03/14/2018 18:54 PDT ----- Please notify patient that throat culture was negative. Oral antibiotics are not needed. Pl ease follow up with PCP if symptoms persist. documented in this encounter Plan of Treatment +--------+---------+ + + + | Date | Type | Specialty | Care Team | Description | +--------+---------+ + + + | 04/14/ | Office | Cardiology | Spencer Brantley, | | | 2019 | Visit | | MD [address] | | | | | | [place], | | | | | | [place] [address] | | | | | | [phone] | | | | | | | | +--------+---------+ + + + documented as of this encounter Visit Diagnoses Not on filedocumented in this encounter"
[~2020-01-04 11:59] MED LIST changes: +LISINOPRIL-HCT1 EAC2 PO; +LISINOPRIL10 MG PO; +MAGOX 400400 MG PO; +MEN'S 50 PLUS1 EACH PO; +MEN'S MULTIVIT1 EACH PO; +SELENIUM50 MCG PO
--- OUTSIDE RECORDS SUMMARY | 2020-01-04 12:02 | XMS ---
PreManage Notification: CIARA SANTO Security Hspt Tutor Events No recent Security Events currently on file CRITERIA MET - [facility] - 2 Visits in 30 Days CARE PROVIDERS There are no care providers on record at this time. [facility] has no Care Guidelines for this patient. [facility] (12 MO.) [facility] TOTAL 3 NOTE: Visits indicate total known visits. ED/C VISIT TRACKING (12 MO.) 01/04/2020 11:59 [facility] [place] TYPE: Emergency COMPLAINT: - ALTERED MENTAL STATUS 12/30/2019 10:21 [facility]: Emergency DIAGNOSES: - Non Verbal/Not able to drink - Elevated blood-pressure reading, without diagnosis of hyperte - Developmental disorder of speech and language, unspecified - Hypo-osmolality and hyponatremia - Altered Mental Status - Unspecified speech disturbances 12/20/2019 17:05 [facility] [place] TYPE: Emergency COMPLAINT: - ABNORMAL TEST RESULTS INPATIENT VISIT TRACKING (12 MO.) 12/20/2019 20:44 [facility] TYPE: [facility] COMPLAINT: - HYPONATREMIA DIAGNOSES: - Adverse effect of carbonic-anhydrase inhibitors, benzothiadia - Other shelter (current) drug therapy - Allergy status to other drugs, medicaments and biological sub - Hypo-osmolality and hyponatremia - Atrioventricular block, second degree - Essential (primary) hypertension - Metabolic encephalopathy - Hypothyroidism, unspecified - Contact with and (suspected) exposure to other viral communic [email or web address]
--- NOTE | 2020-01-05 16:37 | EKG ---
[facility] [address] [facility] [place] [address] Signed Sinus rhythm with frequent and consecutive premature ventricular complexes Abnormal ECG No previous ECGs available Confirmed by MENDEL HALLMAN DO ([id number]) on 01/05/2020 4:37:17 PM Electronically Signed By: MENDEL HALLMAN DO 01/05/20 1637 PATIENT NAME: CIARA SANTO Electrocardiogram DATE OF : 52 PHYSICIAN: MENDEL HALLMAN DO REPORT #: [id number] REPORT IS CONFIDENTIAL AND NOT TO BE RELEASED WITHOUT AUTHORIZATION
--- NOTE | 2020-01-05 16:37 | EKG ---
[facility] [address] [facility] [place] [address] Signed Normal sinus rhythm Normal ECG When compared with ECG of 20-DEC-2019 19:26, premature ventricular complexes are no longer present Sinus rhythm is no longer with 2nd degree AV block (Mobitz II) Confirmed by MENDEL HALLMAN DO ([id number]) on 01/05/2020 4:36:51 PM Electronically Signed By: MENDEL HALLMAN DO 01/05/20 1637 PATIENT NAME: CIARA SANTO Electrocardiogram DATE OF : 52 PHYSICIAN: MENDEL HALLMAN DO REPORT #: [id number] REPORT IS CONFIDENTIAL AND NOT TO BE RELEASED WITHOUT AUTHORIZATION
--- NOTE | 2020-01-06 13:37 | EKG ---
[facility] [address] [facility] [place] [address] Signed Supraventricular tachycardia Nonspecific ST and T wave abnormality Abnormal ECG When compared with ECG of 04-JAN-2020 12:06, (Unconfirmed) Current undetermined rhythm precludes rhythm comparison, needs review Nonspecific T wave abnormality, worse in Inferior leads Confirmed by MENDEL HALLMAN DO ([id number]) on 01/06/2020 1:37:37 PM Electronically Signed By: MENDEL HALLMAN DO 01/06/20 1337 PATIENT NAME: CIARA SANTO Electrocardiogram DATE OF : 52 PHYSICIAN: MENDEL HALLMAN DO REPORT #: [id number] REPORT IS CONFIDENTIAL AND NOT TO BE RELEASED WITHOUT AUTHORIZATION
== END 2020-01-04 22:31 | disposition short-term general hospital (02) ==
LOC: ED 11:59
DX: I49.9 Cardiac arrhythmia, unspecified (principal); E03.9 Hypothyroidism, unspecified; Z91.041 Radiographic dye allergy status; Z79.899 Other long term (current) drug therapy
CPT/HCPCS: 70450; 71045; 80053; 80176; 81001; 82803; 83605; 83690; 83735; 84439; 84443; 84484; 85025; 93005; 93010; 99285-25; G0480

== ENCOUNTER 2021-05-02 13:31 | Emergency (ER) | payer MEDICARE ==
[~2021-05-02] VITALS: Ht 175.3 cm; Wt 73.0 kg
[~2021-05-02 13:31] MED LIST changes: +ATIVAN1 MG PO
--- OUTSIDE RECORDS SUMMARY | 2021-05-02 13:34 | XMS ---
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 [facility] VISIT COUNT (12 MO.) 1 [facility] TOTAL 1 NOTE: Visits indicate total known visits. ED/UCC VISIT TRACKING (12 MO.) 05/02/2021 13:33 [facility] [place] TYPE: Emergency COMPLAINT: - ABD PAIN, SORE THROAT INPATIENT VISIT TRACKING (12 MO.) No inpatient visits to display in this time frame [id number]
[2021-05-02] MEDS ORDERED: LEVOTHYROXINE50 MCG PO (14:49)
== END 2021-05-02 18:10 | disposition home or self-care (01) ==
LOC: ED 13:31
DX: J06.9 Acute upper respiratory infection, unspecified (principal); Z20.822 Contact with and (suspected) exposure to COVID-19; E03.9 Hypothyroidism, unspecified; I10 Essential (primary) hypertension; Z88.8 Allergy status to other drugs, medicaments and biological substances; Z79.899 Other long term (current) drug therapy
CPT/HCPCS: 99283; C9803; U0003

== ENCOUNTER 2024-09-23 08:54 | Emergency (ER) | payer MEDICARE, MEDICAID ==
[~2024-09-23] VITALS: Ht 175.3 cm; Wt 79.1 kg
[~2024-09-23 08:54] MED LIST changes: +LEVOTHYROXINE50 MCG PO
[2024-09-23] MEDS ORDERED: LAMOTRIGINE100 MG PO (11:17)
[2024-09-23 13:24] LABS: BASOPHILS 0.6 % (0-2); EOSINOPHILS 1.6 % (0-6); HEMATOCRIT 35.4 % (35.0-50.0); HEMOGLOBIN 12.4 g/dL (12.0-18.0); LYMPHOCYTES 17.7 % (24-44); MCH 32.7 (27-36); MCV 93.5 fl (81-99); MONOCYTES 10.6 % (0-12); NEUTROPHILS 69.5 % (39-80); PLATELET COUNT 179 K/uL (140-440); RBC 3.79 M/ul (4.3-5.7); RDW 13.6 (10.5-15.0)
[2024-09-23 13:38] LABS: ALBUMIN 3.3 g/dL (3.4-5.0); ALBUMIN/GLOBULIN RATIO 1.18 (1.1-2.4); ANION GAP 8.8 (7-21); BILIRUBIN, TOTAL 0.9 mg/dL (0.2-1.0); CALCIUM 8.8 mg/dL (8.5-10.1); CREATININE, SERUM 0.7 mg/dL (0.70-1.30); POTASSIUM 3.8 mmol/L (3.5-5.1); PROTEIN, TOTAL 6.1 g/dL (6.4-8.2)
[2024-09-23 14:17] LABS: BILIRUBIN, URINE NEGATIVE (negative); BLOOD/HGB, URINE NEGATIVE (Negative); KETONE, URINE NEGATIVE (Negative); LEUK ESTERASE, URINE NEGATIVE (negative); NITRITE, URINE NEGATIVE (negative)
[2024-09-23 16:45] VITALS: BP 154/93
--- NOTE | 2024-09-24 11:51 | EKG ---
[facility] [address] [place] [address] Signed Atrial-paced rhythm with prolonged AV conduction with occasional sinus complexes and premature supraventricular complexes Left axis deviation Left bundle branch block Abnormal ECG When compared with ECG of 05-APR-2021 15:11, premature supraventricular complexes are now present Left bundle branch block is now present Confirmed by Saul Bran MD ([id number]) on 09/24/2024 11:51:00 AM Electronically Signed By: SAUL BRAN MD 09/24/24 1151 PATIENT NAME: CIARA SANTO Electrocardiogram DATE OF : 52 PHYSICIAN: SAUL BRAN MD REPORT #: [id number] REPORT IS CONFIDENTIAL AND NOT TO BE RELEASED WITHOUT AUTHORIZATION
== END 2024-09-23 16:47 | disposition home or self-care (01) ==
LOC: ED 08:54
PROVIDERS: Emergency Medicine
DX: R79.89 Other specified abnormal findings of blood chemistry (principal); R60.0 Localized edema; E03.9 Hypothyroidism, unspecified; I10 Essential (primary) hypertension; Z91.041 Radiographic dye allergy status; Z79.890 Hormone replacement therapy; Z79.899 Other long term (current) drug therapy
CPT/HCPCS: 36415; 71045; 80053; 81003; 83690; 83880; 84484; 85025; 93005; 93010; 99284-25

== ENCOUNTER 2024-11-13 20:50 | Emergency (ER) | payer MEDICARE, MEDICAID ==
[~2024-11-13] VITALS: Ht 175.3 cm; Wt 85.4 kg
[~2024-11-13 20:50] MED LIST changes: +LAMOTRIGINE100 MG PO
[2024-11-13] MEDS ORDERED: SOTALOL80 M1 PO (21:03)
[2024-11-13] MEDS ORDERED: ATIVAN1 MG PO (21:04)
[2024-11-13 21:12] LABS: BASOPHILS 0.6 % (0-2); HEMOGLOBIN 12.7 g/dL (12.0-18.0); LYMPHOCYTES 9.6 % (24-44); MCH 32.4 (27-36); MCHC 34.3 g/dl (30-36); MCV 94.3 fl (81-99); MONOCYTES 9.8 % (0-12); PLATELET COUNT 166 K/uL (140-440); RBC 3.93 M/ul (4.3-5.7); RDW 14.1 (10.5-15.0)
[2024-11-13] MEDS ORDERED: ondansetron HCL 4 MG/2 ML VIAL IV ONE (21:15)
[2024-11-13 21:48] LABS: ALBUMIN 3.4 g/dL (3.4-5.0); ANION GAP 11.5 (7-21); BILIRUBIN, TOTAL 0.7 mg/dL (0.2-1.0); BUN/CREATININE RATIO 25.84 (6.0-28.6); CALCIUM 8.2 mg/dL (8.5-10.1); CREATININE, SERUM 0.89 mg/dL (0.70-1.30); POTASSIUM 4.5 mmol/L (3.5-5.1); PROTEIN, TOTAL 6.8 g/dL (6.4-8.2)
[2024-11-13] MEDS ORDERED: FUROSEMIDE 40 MG/4 ML VIAL IV ONE (22:45)
[2024-11-13 23:04] LABS: BILIRUBIN, URINE NEGATIVE (negative); BLOOD/HGB, URINE NEGATIVE (Negative); KETONE, URINE NEGATIVE (Negative); LEUK ESTERASE, URINE NEGATIVE (negative); NITRITE, URINE NEGATIVE (negative); PH, URINE 6.5 (5-7)
[2024-11-13] MEDS ORDERED: POTASSIUM CHLO20 ME2 PO (23:51)
[2024-11-13] MEDS ORDERED: LASIX40 MG PO (23:51)
[2024-11-14 00:14] VITALS: BP 153/93
--- NOTE | 2024-11-14 20:57 | EKG ---
[facility] [address] [facility] [place] [address] Signed Sinus rhythm with 1st degree AV block with premature atrial complexes Possible Left atrial enlargement Left axis deviation Left bundle branch block Abnormal ECG When compared with ECG of 23-SEP-2024 15:52, Sinus rhythm has replaced Electronic atrial pacemaker Confirmed by Freddy Ocampo MD () on 11/14/2024 8:57:13 PM Electronically Signed By: FREDDY OCAMPO MD 11/14/242056 PATIENT NAME: CIARA SANTO Electrocardiogram DATE OF : 52 PHYSICIAN: FREDDY OCAMPO MD REPORT #: [id number] REPORT IS CONFIDENTIAL AND NOT TO BE RELEASED WITHOUT AUTHORIZATION
== END 2024-11-14 00:15 | disposition home or self-care (01) ==
LOC: ED 20:50
PROVIDERS: Internal Medicine
DX: I50.9 Heart failure, unspecified (principal); Z91.041 Radiographic dye allergy status; Z79.899 Other long term (current) drug therapy
CPT/HCPCS: 36415; 71045; 80053; 81003; 83735; 83880; 84443; 84484; 85025; 93005; 93010; 96374; 96375; 99285-25; J1938; J2405

== ENCOUNTER 2024-11-17 17:34 | Emergency (ER) | payer MEDICARE, MEDICAID ==
[~2024-11-17] VITALS: Ht 175.3 cm; Wt 82.0 kg
[~2024-11-17 17:34] MED LIST changes: +LASIX40 MG PO; +POTASSIUM CHLO20 ME2 PO; +SOTALOL80 M1 PO
--- OUTSIDE RECORDS SUMMARY | 2024-11-17 17:41 | XMS ---
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 [facility] has no Care Guidelines for this patient. [facility]12 MO[facility] NOTE: Visits indicate total known visits. ED/C VISIT TRACKING (12 MO.) 11/17/2024 17:34 [facility] TYPE: Emergency COMPLAINT: - CHEST PRESSURE 11/13/2024 20:51 [facility] [place] TYPE: Emergency COMPLAINT: - CHEST PAIN DIAGNOSES: - Heart failure, unspecified - Other chest pain - Other prison (current) drug therapy - Radiographic dye allergy status 09/23/2024 08:55 [facility] [place] TYPE: Emergency COMPLAINT: - ABDOMINAL PAIN DIAGNOSES: - Essential (primary) hypertension - Hormone replacement therapy - Hypothyroidism, unspecified - Left lower quadrant pain - Localized edema - Other prison (current) drug therapy - Other specified abnormal findings of blood chemistry - Radiographic dye allergy status INPATIENT VISIT TRACKING (12 MO.) No inpatient visits to display in this time frame [email or web address]
[2024-11-17 18:04] LABS: BASOPHILS 0.8 % (0-2); EOSINOPHILS 2.8 % (0-6); HEMATOCRIT 36.8 % (35.0-50.0); HEMOGLOBIN 12.7 g/dL (12.0-18.0); LYMPHOCYTES 16.6 % (24-44); MCH 32.3 (27-36); MCHC 34.5 g/dl (30-36); MCV 93.6 fl (81-99); NEUTROPHILS 69.8 % (39-80); PLATELET COUNT 180 K/uL (140-440); RBC 3.93 M/ul (4.3-5.7); RDW 14.2 (10.5-15.0)
[2024-11-17 18:24] LABS: ALBUMIN 3.2 g/dL (3.4-5.0); ANION GAP 10.4 (7-21); BILIRUBIN, TOTAL 0.9 mg/dL (0.2-1.0); BUN/CREATININE RATIO 26.74 (6.0-28.6); CALCIUM 8.3 mg/dL (8.5-10.1); CREATININE, SERUM 0.86 mg/dL (0.70-1.30); MAGNESIUM 2.1 mg/dL (1.8-2.4); POTASSIUM 4.4 mmol/L (3.5-5.1); PROTEIN, TOTAL 6.4 g/dL (6.4-8.2)
[2024-11-17 21:05] VITALS: BP 143/90
--- NOTE | 2024-11-18 12:49 | EKG ---
[facility] [address] [facility] [place] [address] Signed Sinus rhythm with 1st degree AV block with occasional premature ventricular complexes and premature atrial complexes Left bundle branch block Abnormal ECG When compared with ECG of 13-NOV-2024 20:52, premature ventricular complexes are now present QRS axis shifted right Confirmed by Juarez Roland DO ([id number]) on 11/18/2024 12:49:01 PM Electronically Signed By: JUAREZ ROLAND DO 11/18/24 1249 PATIENT NAME: CIARA SANTO DICKSON Electrocardiogram DATE OF : 52 PHYSICIAN: JUAREZ ROLAND DO REPORT #: [id number] REPORT IS CONFIDENTIAL AND NOT TO BE RELEASED WITHOUT AUTHORIZATION
== END 2024-11-17 21:05 | disposition home or self-care (01) ==
LOC: ED 17:34
PROVIDERS: Emergency Medicine
DX: R07.89 Other chest pain (principal); E03.9 Hypothyroidism, unspecified; I11.0 Hypertensive heart disease with heart failure; I50.9 Heart failure, unspecified; Z79.899 Other long term (current) drug therapy; Z91.041 Radiographic dye allergy status
CPT/HCPCS: 36415; 71045; 80053; 83735; 83880; 84484; 85025; 93005; 93010; 99285-25